=== PATIENT | female | born 1955 | race Caucasian/White ===

== ENCOUNTER → 2016-07-17 | Outpatient (CLI) | payer OTHER ==
--- NOTE | 2016-07-21 10:47 | DX ---
DEXA Bone Densitometry Technique: DEXA scan was performed on DB3 Mobile Discovery W Bone Densitometer Indication: Screening examination Comparator Study: November 2012 Results: Lumbar Spine BMD: 1.319 T-score: +2.5 Prior BMD: 1.198 % change: +10.1% Total Hip (Right) BMD: 1.095 T-score: +1.3 Femoral Neck (Right) BMD: 0.949 T-score: +0.9 Total Hip (Left) BMD: 1.087 T-score: +1.2 Prior BMD: 1.002 % change: +8.5% Femoral Neck (Left) BMD: 0.925 T-score: +0.7 CONCLUSION: Normal bone mineral density In comparison to prior study from November 2012 the patient measured BMD in the lumbar spine is increased by 10.1% which is a significant change. The patient's measure BMD in the total hip has increased sig nificantly ADDITIONAL COMMENTS: By FRAX calculation, the estimated 10 year risk of any osteoporotic fracture is 5.7%. The estimated 1 0 year risk of hip fracture is 0.1% Consider repeating the study in 2 years NOTE: The risk of osteoporotic fractures increases approximately twofold for each 1.0 SD decrease in T-score. The T-score represents the standard deviations from a young normal, same sex, reference po pulation. Low bone density is not the only risk factor for fracture. Clinical factors to consider include fall risk, previous osteoporotic fractures, family history of fractures, smoking, and low body weight. Patients who have an unexpectedly low BMD may need to be evaluated for secondary causes of low bone m ineral density. In comparing the present study to a prior study, lack of a significant increase or decrease in BMD ma y signify efficacy of the patient's present treatment. Bone mineral density measurements performed with densitometers produced by different manufacturers ar e not comparable. For the most reproducible BMD measurement, subsequent exams should be performed on the same densitometer.
== END ==
LOC: BMCIMAGING 13:58
PROVIDERS: ATTEND Internal Medicine
DX: Z13.820 Encounter for screening for osteoporosis (principal)

== ENCOUNTER 2016-08-24 13:36 | Day surgery (SDC) | payer OTHER ==
[2016-08-24] MEDS ORDERED: LR 1,000 ML IV ONE (14:52)
[2016-08-24] MEDS ORDERED: CEFAZOLIN 2 GM/DEXTROSE/100 ML BAG IV ONE (14:54)
[2016-08-24] MEDS ORDERED: ceFAZolin 2 GM/DEXTROSE 100 ML IV ONE (15:00)
[2016-08-24] MEDS ORDERED: PROPOFOL/EMULSION 500 MG/50 ML BOTTLE IV ONE ×2 (15:09→15:55)
[2016-08-24] MEDS ORDERED: BUPIVACAINE 0.25% 30 ML SDV ONE (15:11)
[2016-08-24] MEDS ORDERED: HEPARIN 1000 UNIT/1 ML MDV ONE ×2 (15:12→16:07)
[2016-08-24] MEDS ORDERED: MIDAZOLAM 2 MG/2 ML VIAL ONE (15:22)
[2016-08-24] MEDS ORDERED: LIDOCAINE 1% 30 ML SDV ONE (15:53)
--- NOTE | 2016-08-24 18:10 | GOP ---
DATE OF OPERATION: 08/24/2016 SURGEON: Abrahan Gallardo MD, FACS ANESTHESIA: Laryngeal mask, general. ANESTHESIOLOGIST: Becky Kraft MD. PREOPERATIVE DIAGNOSIS: 1. Metastatic breast cancer. 2. Need for venous access for chemotherapy administration. 3. Indwelling left subclavian automatic internal cardiac defibrillator (AICD). POSTOPERATIVE DIAGNOSIS: 1. Metastatic breast cancer. 2. Need for venous access for chemotherapy administration. 3. Indwelling left subclavian automatic internal cardiac defibrillator (AICD). PROCEDURE PERFORMED: Placement of right internal jugular venous port. FINDINGS: Uncomplicated port placement with tip of catheter positioned at the superior vena caval right atrial junction. Postprocedural chest x-ray pending at time of dictation. ESTIMATED BLOOD LOSS: 5 mL. DESCRIPTION OF PROCEDURE: After informed consent was obtained, the patient was brought to the operating room and placed supine with both arms tucked. The neck and chest wall were prepped and draped in the usual fashion after a satisfactory general anesthetic was administered. Before proceeding, a time- out and identification of the patient was performed. Ultrasound was used to identify the right internal jugular vein. The skin lateral to the sternocleidomastoid muscle was infiltrated with 1% lidocaine plain, and an 18-gauge thin wall needle was introduced into the jugular vein under direct visualization with good venous return. A flexible J-wire was introduced and advanced with mild resistance, possibly related to the patient's cardiac leads. Ectopy was noted, and the wire was withdrawn slightly. A reservoir site was selected on the chest wall and was infiltrated with a mixture of 0.25% Marcaine and 1% lidocaine plain. The skin was incised with a scalpel, and dissection was carried out down to the chest wall. No monopolar cautery was used throughout the operation, and hemostasis was secured with bipolar cautery. A small pocket was created superficial to the muscle. An 8- Liberian catheter was then tunneled from the reservoir site to the venipuncture site. A dilator and peel-away catheter were passed over the wire, the wire and dilator were removed, and the 8-Liberian catheter was passed through the peel- away catheter and advanced without resistance. The peel-away catheter was split and removed. The catheter was aspirated with good venous return and was flushed with dilute heparin solution. Under fluoroscopy, the catheter was withdrawn from its position in the right atrium until it was at the superior vena caval right atrial junction. The external portion of the catheter was then cut to length and attached to the reservoir with a locking hub. This was accessed with a noncoring Trimble needle and aspirated with good venous return. It was flushed with dilute heparin solution, followed by 1000 units/cc heparin 2.5 mL. The reservoir was secured to the fascia with 3-0 Prolene suture. Subcutaneous tissues were inspected for hemostasis, which appeared secure. They were approximated with 3-0 Monocryl suture. Skin was closed with 5-0 Monocryl suture in a subcuticular fashion. The vena puncture site was closed with a single interrupted 5-0 Monocryl suture in simple subcuticular fashion. Sterile dressings were applied. The patient was returned to the recovery room extubated, in satisfactory condition. Needle, sponge, and instrument count were correct. COMPLICATIONS: None. /[id number]/MODL MTDD
== END 2016-08-24 18:35 | disposition home or self-care (01) ==
LOC: FSGY 13:36
PROVIDERS: ATTEND Surgery
PROC: 0JH60XZ Insertion of Tunneled Vascular Access Device into Chest Subcutaneous Tissue and Fascia, Open Approach (ICD-10-PCS; principal; 2016-08-24 14:45)
PROC: 02HV33Z Insertion of Infusion Device into Superior Vena Cava, Percutaneous Approach (ICD-10-PCS; principal; 2016-08-24 14:45)
DX: C78.7 Secondary malignant neoplasm of liver and intrahepatic bile duct (principal); C79.51 Secondary malignant neoplasm of bone; Z85.3 Personal history of malignant neoplasm of breast; I45.81 Long QT syndrome; Z95.810 Presence of automatic (implantable) cardiac defibrillator; I87.8 Other specified disorders of veins; M54.9 Dorsalgia, unspecified; I10 Essential (primary) hypertension; E03.9 Hypothyroidism, unspecified; E78.5 Hyperlipidemia, unspecified; Z98.1 Arthrodesis status
CPT/HCPCS: C1788; J0690; J2250; J2704

== ENCOUNTER → 2016-08-27 | Outpatient (CLI) | payer OTHER | LOC: FIMAGING 17:01 | PROVIDERS: ATTEND Internal Medicine Hematology & Oncology | DX: M79.602 Pain in left arm (principal); Z85.3 Personal history of malignant neoplasm of breast ==

== ENCOUNTER → 2016-10-01 | Outpatient (CLI) | payer OTHER | LOC: FIMAGING 14:40 | PROVIDERS: ATTEND Nurse Practitioner | DX: R91.1 Solitary pulmonary nodule (principal); J98.4 Other disorders of lung; C50.919 Malignant neoplasm of unspecified site of unspecified female breast ==

== ENCOUNTER → 2016-10-02 | Outpatient (CLI) | payer OTHER ==
[~2016-10-02] MED LIST: IOPAMIDOL (ISOVUE 370) 100 ML BTL IV ONE
== END ==
LOC: FIMAGING 15:28
PROVIDERS: ATTEND Nurse Practitioner
DX: R06.02 Shortness of breath (principal); C78.00 Secondary malignant neoplasm of unspecified lung; C78.7 Secondary malignant neoplasm of liver and intrahepatic bile duct; C50.919 Malignant neoplasm of unspecified site of unspecified female breast
CPT/HCPCS: Q9967

== ENCOUNTER → 2016-10-08 | Outpatient (CLI) | payer OTHER | LOC: FIMAGING 13:37 → EDSTATUS 13:38 | PROVIDERS: ATTEND Internal Medicine Hematology & Oncology | DX: C50.411 Malignant neoplasm of upper-outer quadrant of right female breast (principal) ==

== ENCOUNTER 2017-03-03 14:05 | Emergency (ER) | payer OTHER ==
[2017-03-03 14:11] VITALS: PULSE 86
--- NOTE | 2017-03-03 14:16 | EDPHY ---
H & P Stated Complaint: fevers/chills/aches, started new chemo on HPI/ROS: CHIEF COMPLAINT: Low back and neck pain HISTORY OF PRESENT ILLNESS: The patient is a 61 y/o female who presents with abdominal and neck pain since , 3 days ago. She has a history of metastatic breast cancer and has been on consistent chemotherapy for two years. On Saturday, 5 days ago, she had her first treatment with a new medication, and initially felt well. On she developed a subjective fever and headache. She has also had diarrhea in the past day. This morning her temperature was lower but she has pain in her back, abdomen, and shoulder. She describes the pain as an aching sensation, in the muscles. She also reports a new cough, shortness of breath, and cannot take a full breath. Denies sore throat, nausea, vomiting, leg edema, calf pain, dysuria, polyuria, extremity weakness, change in vision, confusion. Denies alcohol and tobacco use. REVIEW OF SYSTEMS: A ten point review of systems was performed and is negative with the exception of the items mentioned in the HPI. Past medical history: Metastatic breast cancer AICD for long QT Hypothyroid Lymphedema Shingles Past surgical history: 3 lumpectomies C5-6 fusion Sympathetic denervation AICD Family history: Congenital long QT Social history: Partner at bedside Non-smoker Retired from [employer] Prior medical records reviewed, including admission note from Dr. Escalante on . General Appearance: Alert. Vital signs reviewed. Blood pressure 98/68 at triage. Temperature 37.1degrees. Eyes: No conjunctival injection, no discharge. Anicteric. ENT, Mouth: Mucous membranes are moist, no oropharyngeal erythema or edema. Neck: No lymphadenopathy, supple, no meningeal signs. Respiratory: Lungs are clear to auscultation; no wheezes, rales, or rhonchi. Cardiovascular: Slight tachycardia; no murmur, rub, or gallop. Gastrointestinal: Hepatomegaly with tenderness. Otherwise abdomen is soft and tender, no masses or organomegaly, bowel sounds normal. Skin: Warm and dry, no rashes on exposed skin, normal color. Back: Midline low lumbar tenderness to palpation. No tenderness to palpation over the thoracic spine. No CVAT. Extremities: No lower extremity edema, no calf tenderness or swelling. Neurological: Alert and oriented. EOMI. Facial expressions symmetric. Tongue midline. Moving all four extremities easily and equally. Psychiatric: Normal affect. - Personal History Current Tetanus/Diphtheria Vaccine: Yes Current Tetanus Diphtheria and Acellular Pertussis (TDAP): Yes Tetanus Vaccine Date: 2009 - Medical/Surgical History Hx Asthma: No Hx Chronic Respiratory Disease: No Hx Diabetes: No Hx Cardiac Disease: No Hx Renal Disease: No Hx Cirrhosis: No Hx Alcoholism: No Hx HIV/AIDS: No Hx Splenectomy or Spleen Trauma: No - Social History Smoking Status: Former smoker Constitutional: Initial Vital Signs Temperature (C) 37.1 C 03/03/17 14:08 Heart Rate 86 03/03/17 14:08 Respiratory Rate 18 03/03/17 14:08 Blood Pressure 98/68 L 03/03/17 14:08 O2 Sat (%) 95 03/03/17 14:08 O2 Delivery Mode Room Air Allergies/Adverse Reactions: cetirizine Allergy (Unknown, Verified 03/03/17 14:06) prolonged QT fentanyl Allergy (Verified 03/03/17 14:06) Vomiting prochlorperazine [From Compazine] Allergy (Verified 03/03/17 14:06) Other-Enter Comments prochlorperazine edisylate [From Compazine] Allergy (Verified 03/03/17 14:06) Other-Enter Comments prochlorperazine maleate [From Compazine] Allergy (Verified 03/03/17 14:06) Other-Enter Comments promethazine HCl [From Phenergan] Allergy (Verified 03/03/17 14:06) Other-Enter Comments Home Medications: Medication Instructions Recorded Montelukast Sodium 07/09/15 FLUoxetine [Prozac 10 MG (*)] 03/15/16 Hydrochlorothiazide [HCTZ (*)] 03/15/16 LORazepam [Ativan (*)] 03/15/16 Levothyroxine [Synthroid 112 mcg 03/15/16 (*)] Potassium Cl [Klor-Con 20 meq (*)] 03/15/16 Refresh Preservative Free 03/15/16 Spironolactone [Aldactone 25 MG 03/15/16 (*)] Temazepam [Restoril 15 MG (*)] 03/15/16 Herceptin 440 MG/20 ML 08/21/16 Navelbine 08/21/16 Gemcitabine HCl 03/03/17 Medical Decision Making - Diagnostics Imaging: Discussed imaging studies w/ milking worker Radiologist, I viewed and interpreted images myself ED Course/Re-evaluation: The patient is a 61 y/o female with Stage 4 metastatic breast cancer who presents with a fever and myalgias after starting a new chemotherapeutic drug. She is afebrile in the ED. She has tenderness over her lumbar spine and liver ( she is known to have liver metastases). Plan on labs, blood cultures, and chest x-ray. Reassessed patient at 1520 and discussed her laboratory results. WBC within normal limits, with slight left shift. Glucose high, chemistries otherwise normal. She is not febrile, this is not neutropenic fever. Reassessed patient at 1550 and discussed imaging results. CXR does not show an infiltrate. Stable metastatic disease seen on xray. [address] Min Aburto, oncologist. He agrees that since there is no source of infection for her current symptoms antibiotics are not warranted. 1700 she has received 1 L normal saline IV. I think that she is volume depleted. She has not had diarrhea in theED. She has no new complaints. She continues with mild headache, no meningeal signs. She is awake, alert, and appropriate. Normal neurologic exam. She remains afebrile. Blood pressure is 103/67. Patient will be discharged with agreement to keep her appointment with Dr. Fish, oncologist, on Saturday (2 days from now). Differential Diagnosis: Fever in adults including but not limited to neutropenic fever in setting of chemotherapy, pneumonia, meningitis, urinary tract infection, viral syndrome, and influenza. - Data Points Laboratory Results: Laboratory Results 03/03/17 14:50 03/03/17 14:50 Microbiology Results: MICROBIOLOGY 03/03/17 15:20 Blood Blood Culture - Preliminary 03/03/17 14:50 Blood Blood Culture - Preliminary Medications Given: Discontinued Medications Heparin Sodium (Porcine) (Heparin Lock Flush) 500 unit IVP EDNOW ONE Stop: 03/03/17 17:01 Last Admin: 03/03/17 17:12 Dose: 500 unit Ibuprofen (Motrin) 400 mg PO EDNOW ONE Stop: 03/03/17 15:57 Last Admin: 03/03/17 16:10 Dose: 400 mg Departure - Departure Disposition: Home, Routine, Self-Care Clinical Impression: Fever, Myalgia Condition: Good Instructions: Fever in Adults (ED), Musculoskeletal Pain (ED) Additional Instructions: 1. Adult Pain & Fever Control: We recommend Acetaminophen (Tylenol) and Ibuprofen (Motrin,Advil) for pain and fever control. When fever is high or pain severe, both drugs can be used at the same time, but at different intervals. Please note the time differences. Your dose is: Acetaminophen 650mg every 4 to 6 hours Ibuprofen 400mg every 6-8 hours with food. Note: do not take Acetaminophen with Hydrocodone (Vicodin, Lortab) or Oycodone (Percocet). These medications also contain Acetaminophen. No more than 3000mg of Acetaminophen should be taken in 24 hours (for an adult). 2. Keep your appointment with Dr. Fish on Saturday. 3. Return to the ED if you experience fever over 100.5, chest pain, shortness of breath, severe abdominal pain, weakness, numbness, or other worsening of your symptoms. Referrals: Shona Agarwal MD [Primary Care Provider] - As per Instructions Report Scribed for: Luz Rodas Report Scribed by: Kathie Baum Date of Report: 03/03/17 Time of Report: 14:40 Physician Review and Approval Statement: 03/03/17 14:16 Portions of this note were transcribed by the medical insurance verifier. I, Dr. Luz Rodas, personally performed the history, physical exam, and medical decision- making; and confirmed the accuracy of the information in the transcribed note.
[2017-03-03 15:07] LABS: % IMMATURE GRANULYOCYTES 0.7 % (0.0-1.1); ABSOLUTE IMMATURE GRANULOCYTES 0.04 10^3/uL (0.00-0.10); ABSOLUTE NRBC COUNT 0.02 10^3/uL (0-0.01); ADD DIFF? NO; ADD MORPH? NO; ADD SCAN? NO; ATYPICAL LYMPHOCYTE FLAG 0 (0-99); FRAGMENT RBC FLAG 20 (0-99); HEMATOCRIT 31.4 % (38.0-47.0); HEMOGLOBIN 10.1 g/dL (12.6-16.3); LEFT SHIFT FLG 0 (0-99); LIPEMIA HEMOLYSIS FLAG 80 (0-99); MEAN CELL HEMOGLOBIN 30.5 pg (27.9-34.1); MEAN CELL HEMOGLOBIN CONCENTR. 32.2 g/dL (32.4-36.7); MEAN CELL VOLUME 94.9 fL (81.5-99.8); NRBC-AUTO% 0.3 % (0.0-0.2); PLATELET CLUMPS FLAG 0 (0-99); PLATELET COUNT 295 10^3/uL (150-400); RED BLOOD CELL COUNT 3.31 10^6/uL (4.18-5.33); RED CELL DISTRIBUTION WIDTH 17.5 % (11.5-15.2)
[2017-03-03 15:23] LABS: ANION GAP 11 mEq/L (8-16); CALCIUM 9.3 mg/dL (8.5-10.4); CARBON DIOXIDE 25 mEq/l (22-31); CHLORIDE 102 mEq/L (97-110); CREATININE 0.9 mg/dL (0.6-1.0); GLOMERULAR FILTRATION RATE > 60; GLUCOSE 178 mg/dL (70-100); POTASSIUM 4.3 mEq/L (3.5-5.2); SODIUM 138 mEq/L (134-144)
[2017-03-03 15:45] LABS: COLOR YELLOW; LEUKOCYTE ESTERASE,URINE NEGATIVE (NEGATIVE); NITRITE,URINE NEGATIVE (NEGATIVE)
[2017-03-03] MEDS ORDERED: IBUPROFEN 200 MG TAB PO ONE (15:56)
[2017-03-03 17:25] VITALS: BP 103/76; RESP 16; TEMP 98.8; O2SAT 94
== END 2017-03-03 17:24 | disposition home or self-care (01) ==
DX: R50.9 Fever, unspecified (principal); M79.1 Myalgia; Z85.3 Personal history of malignant neoplasm of breast; Z87.891 Personal history of nicotine dependence
CPT/HCPCS: J1642

== ENCOUNTER → 2017-03-07 | Outpatient (CLI) | payer OTHER ==
[~2017-03-07] MED LIST changes: -IOPAMIDOL (ISOVUE 370) 100 ML BTL IV ONE; +IOPAMIDOL (ISOVUE-M 300) 15 ML VIAL ONE; +LIDOCAINE 1% 300 MG/30 ML SDV ONE
== END ==
LOC: FIMAGING 08:45
PROVIDERS: ATTEND Physician Assistant Surgical
PROC: B00B1ZZ Plain Radiography of Spinal Cord using Low Osmolar Contrast (ICD-10-PCS; principal; 2017-03-07)
DX: C79.51 Secondary malignant neoplasm of bone (principal); C50.919 Malignant neoplasm of unspecified site of unspecified female breast
CPT/HCPCS: Q9967

== ENCOUNTER → 2017-03-13 | Day surgery (SDC) | payer OTHER ==
[~2017-03-13] MED LIST changes: -LIDOCAINE 1% 300 MG/30 ML SDV ONE
== END | disposition home or self-care (01) ==
LOC: FIMAGING 13:00
PROVIDERS: ATTEND Obstetrics & Gynecology
PROC: B01B1ZZ Fluoroscopy of Spinal Cord using Low Osmolar Contrast (ICD-10-PCS; principal; 2017-03-13)
PROC: 3E0S3GC Introduction of Other Therapeutic Substance into Epidural Space, Percutaneous Approach (ICD-10-PCS; principal; 2017-03-13)
DX: G97.1 Other reaction to spinal and lumbar puncture (principal)
CPT/HCPCS: J1642; Q9967

== ENCOUNTER → 2017-06-27 | Outpatient (CLI) | payer OTHER | LOC: FIMAGING 18:50 | PROVIDERS: ATTEND Internal Medicine Hematology & Oncology | DX: C78.00 Secondary malignant neoplasm of unspecified lung (principal); C50.919 Malignant neoplasm of unspecified site of unspecified female breast ==

== ENCOUNTER → 2017-07-04 | Outpatient (CLI) | payer OTHER | LOC: FIMAGING 15:13 | PROVIDERS: ATTEND Internal Medicine Hematology & Oncology | DX: J11.1 Influenza due to unidentified influenza virus with other respiratory manifestations (principal); Z85.3 Personal history of malignant neoplasm of breast ==

== ENCOUNTER 2017-07-05 17:17 | Inpatient (IN) | payer OTHER ==
[2017-07-05] MEDS ORDERED: NS 1,800 ML IV ONE (17:39)
--- NOTE | 2017-07-05 17:40 | EDPHY ---
H & P Stated Complaint: + flu cancer pt increasing sob/weakness/fever Source: Patient Exam Limitations: No limitations - Personal History Current Tetanus/Diphtheria Vaccine: Yes Tetanus Vaccine Date: 2009 - Medical/Surgical History Hx Asthma: No Hx Chronic Respiratory Disease: No Hx Diabetes: No Hx Cardiac Disease: No Hx Renal Disease: No Hx Cirrhosis: No Hx Alcoholism: No Hx HIV/AIDS: No Hx Splenectomy or Spleen Trauma: No Other PMH: STAGE 4 BREAST CANCER,PNEUMONITIS hx Shingles,long qt interval, screw in left shoulder, C5/C6 fusion, in Sept.sympathetic denervation which causes residual left pupil smaller than right, pt has pace maker recent cortisone injection to right elebow for tendonitis, syncope - Social History Smoking Status: Former smoker Time Seen by Provider: 07/05/17 17:38 HPI/ROS: HPI: This is a 62-year-old female who presents with Chief Complaint: Flu Location: body Quality: fly Duration: 1 week Signs and Symptoms: + shortness of breath at rest, + shortness of breath on exertion, no cough, no chest pain, positive harsh dry cough, no palpitations, no lower extremity edema, no wheezing, + low-grade fever, no hemoptysis, no neck stiffness, no headache, + 50 Timing: Sudden Severity: Worsened Context: Patient is a stage IV breast cancer with metastatic disease to liver, lung, spine. Patient followed by Dr. Fish currently receiving tratuzumab type therapy presents with low-grade fevers, nonproductive harsh cough, fatigue, chills, decreased appetite since while she was in [place]. Patient reports that she went to urgent care within 24 hr of developing symptoms, tested positive for influenza and was told by the urgent care doctor to go to the emergency room for further care as he did not feel comfortable treating her. Patient went to the local emergency room and was told was going to be a 5 hr wait so patient returned to the [facility] that she was staying at. She returned to [place] on the and had blood work with Dr. Fish on the that looked pretty good so she had her infusion treatment as scheduled. She reports that the day after receiving her treatment she has felt considerably worse, decreased appetite, low-grade fevers, harsh dry cough. She reports that she has been using Atrovent with mildly relief of her coughing episodes and cough syrup with codeine that just puts her to sleep. Denies chest pain/ palpitation/lower extremity edema. Her recently had hip surgery in his at home. Friend at the bedside reports that she is unable to care for self at home. Also complains lower back pain has worsened over the last few days accompanied by urinary frequency. Modifying Factors: See above Comment: ROS: see HPI Constitutional: + fever, + chills, no weight loss Eyes: No blurred vision Respiratory: + shortness of breath, no cough Cardiovascular: No chest pain, no palpitations, no lower extremity edema Gastrointestinal: No nausea, no vomiting, no diarrhea Genitourinary: No dysuria Extremities: No myalgias Neurologic: No weakness, no numbness Skin: No rashes Hematologic: No bruising, no bleeding MEDICAL/SURGICAL/SOCIAL HISTORY: Medical/Surgical history: STAGE 4 BREAST CANCER,PNEUMONITIS hx Shingles,long qt interval,screw in left shoulder, C5/C6 fusion, in Sept.sympathetic denervation which causes residual left pupil smaller than right, congenital prolonged QT syndrome, status post AICD and pacemaker placement, syncope Social history: . CONSTITUTIONAL: Chronically ill-appearing elderly white female who appears ill , awake and alert, no obvious distress HEENT: Atraumatic and normocephalic, PERRL, EOMI. Tympanic membranes clear. Oropharynx clear, no exudate and moist pink mucosa. Airway patent. No lymphadenopathy. No meningismus. Cardiovascular: Normal S1/S2, regular rate, regular rhythm, without murmur rub or gallop. PULMONARY/CHEST: Symmetrical and nontender. Expiratory wheezing noted with coughing episodes. Good air movement. No accessory muscle usage. ABDOMEN: Soft, nondistended, nontender, no rebound, no guarding, no peritoneal signs, no masses or organomegaly. No CVAT. EXTREMITIES: 2/2 pulses, strength 5/5, no deformities, no clubbing, no cyanosis or edema. NEUROLOGICAL: no focal neuro deficits. GCS 15. SKIN: Warm and dry, no erythema. no rash. Good capillary refill. (Paris Haley) Constitutional: Initial Vital Signs Temperature (C) 37.3 C 07/05/17 17:22 Heart Rate 93 07/05/17 17:22 Respiratory Rate 18 07/05/17 17:22 Blood Pressure 98/65 L 07/05/17 17:22 O2 Sat (%) 91 L 07/05/17 17:22 O2 Delivery Mode Room Air Allergies/Adverse Reactions: cetirizine Allergy (Unknown, Verified 03/03/17 14:06) prolonged QT fentanyl Allergy (Verified 03/03/17 14:06) Vomiting prochlorperazine [From Compazine] Allergy (Verified 03/03/17 14:06) Other-Enter Comments prochlorperazine edisylate [From Compazine] Allergy (Verified 03/03/17 14:06) Other-Enter Comments prochlorperazine maleate [From Compazine] Allergy (Verified 03/03/17 14:06) Other-Enter Comments promethazine HCl [From Phenergan] Allergy (Verified 03/03/17 14:06) Other-Enter Comments Home Medications: Medication Instructions Recorded Montelukast Sodium 10 mg PO DAILY 07/09/15 FLUoxetine [Prozac 10 MG (*)] 10 mg PO DAILY 03/15/16 Hydrochlorothiazide [HCTZ (*)] 25 mg PO DAILY 03/15/16 LORazepam [Ativan (*)] 0.5 mg PO HS 03/15/16 Levothyroxine [Synthroid 112 mcg 112 mcg PO DAILY 03/15/16 (*)] Potassium Cl [Klor-Con 20 meq (*)] 60 meq PO DAILY 03/15/16 Spironolactone [Aldactone 25 MG 50 mg PO DAILY 03/15/16 (*)] Temazepam [Restoril 15 MG (*)] 30 mg PO HS 03/15/16 Herceptin 440 MG/20 ML 0 units IV Q21D 08/21/16 Gemcitabine HCl 0 unit IV Q14D 03/03/17 Acetaminophen [Tylenol ES 500 mg 1,000 mg PO Q6 PRN 07/05/17 (*)] Carboxymethylcellulose 1% [Refresh 1 drop EACHEYE DAILY PRN 07/05/17 Celluvisc (*)] Codeine Phosphate/Guaifenesin 5 ml PO Q4H PRN 07/05/17 [Virtussin AC Liquid] Herbals/Supplements -Info Only 1 ea PO DAILY 07/05/17 Ibuprofen [Motrin (*)] 200 - 400 mg PO BID PRN 07/05/17 Ipratropium [Atrovent Hfa (*)] 1 inh IH Q6H 07/05/17 Lifitegrast [Xiidra] 1 each OP DAILY PRN 07/05/17 Medical Decision Making - Diagnostics Imaging Results: Imaging Impressions Chest X-Ray 07/05/17 17:39 Impression: There has been no interval change since yesterday's study. Specifically, there is no new focal infiltrate observed. ED Course/Re-evaluation: I evaluated this patient with Paris Haley and discuss the past medical history of stage IV breast cancer. The patient is immunocompromised. The patient is influenza positive. We are assessing the patient for sepsis. I agree with the evaluation and plan and have continued to maintain involvement from patient's arrival until admission (Andrea Rae) Will evaluate for sepsis and give normal saline 30 ml/kg. Labs, urinalysis, blood culture, chest x-ray, IV fluids, IV medications ordered. Patient has failed outpatient therapy and is immunocompromised and will need admission for further management. Given DuoNeb and placed on oxygen therapy as O2 sats 91% on room air upon arrival. X-ray does not show any interval change in no signs of opacity, + trace effusion. CT lumbar spine ordered to evaluate for compression fracture Labs reviewed and show leukocytosis with normal lactic acid. Creatinine 1.1 which is increased from 0.8 few days ago. ED decision to consult for admission; Dr. Rae spoke with hospitalist, Dr. Cortez, who kindly agrees admit patient for further care for influenza positive in an immunocompromised patient with hypoxemia. This patient was seen under the supervision of my secondary supervising physician. I evaluated care for this patient independently. Discussed this patient with Dr. Rae who did not see the patient. Patient's presentation, labs/imaging, treatment and plan of care were discussed with secondary supervising physician. (Paris Haley) Differential Diagnosis: Adult fever including but not limited to viral syndromes including influenza, urinary tract infection, pneumonia and sepsis. (Paris Haley) - Data Points Laboratory Results: Laboratory Results 07/05/17 18:19 07/05/17 18:19 07/05/17 07/05/17 07/05/17 18:19 18:19 18:19 WBC 10.53 10^3/uL H 10^3/uL (3.80-9.50) RBC 3.78 10^6/uL L 10^6/uL (4.18-5.33) Hgb 12.0 g/dL L g/dL (12.6-16.3) Hct 35.5 % L % (38.0-47.0) MCV 93.9 fL fL (81.5-99.8) MCH 31.7 pg pg (27.9-34.1) MCHC 33.8 g/dL g/dL (32.4-36.7) RDW 17.5 % H % (11.5-15.2) Plt Count 149 10^3/uL L 10^3/uL (150-400) MPV 9.5 fL fL (8.7-11.7) Neut % (Auto) 83.0 % H % (39.3-74.2) Lymph % (Auto) 1.8 % L % (15.0-45.0) [place] % (Auto) 14.2 % H % (4.5-13.0) Eos % (Auto) 0.1 % L % (0.6-7.6) Baso % (Auto) 0.1 % L % (0.3-1.7) Nucleat RBC Rel Count 1.3 % H % (0.0-0.2) Absolute Neuts (auto) 8.74 10^3/uL H 10^3/uL (1.70-6.50) Absolute Lymphs (auto) 0.19 10^3/uL L 10^3/uL (1.00-3.00) Absolute Monos (auto) 1.50 10^3/uL H 10^3/uL (0.30-0.80) Absolute Eos (auto) 0.01 10^3/uL L 10^3/uL (0.03-0.40) Absolute Basos (auto) 0.01 10^3/uL L 10^3/uL (0.02-0.10) Absolute Nucleated RBC 0.14 10^3/uL H 10^3/uL (0-0.01) Immature Gran % 0.8 % % (0.0-1.1) Immature Gran # 0.08 10^3/uL 10^3/uL (0.00-0.10) PT 13.7 SEC SEC (12.0-15.0) INR 1.03 (0.83-1.16) APTT 27.1 SEC SEC (23.0-38.0) VBG Lactic Acid Sodium 133 mEq/L L mEq/L (134-144) Potassium 4.4 mEq/L mEq/L (3.5-5.2) Chloride 96 mEq/L L mEq/L (97-110) Carbon Dioxide 26 mEq/l mEq/l (22-31) Anion Gap 11 mEq/L mEq/L (8-16) BUN 27 mg/dL H mg/dL (7-23) Creatinine 1.1 mg/dL H mg/dL (0.6-1.0) Estimated GFR 50 Glucose 123 mg/dL H mg/dL (70-100) Calcium 9.6 mg/dL mg/dL (8.5-10.4) 07/05/17 18:19 WBC RBC Hgb Hct MCV MCH MCHC RDW Plt Count MPV Neut % (Auto) Lymph % (Auto) [place] % (Auto) Eos % (Auto) Baso % (Auto) Nucleat RBC Rel Count Absolute Neuts (auto) Absolute Lymphs (auto) Absolute Monos (auto) Absolute Eos (auto) Absolute Basos (auto) Absolute Nucleated RBC Immature Gran % Immature Gran # PT INR APTT VBG Lactic Acid 1.4 mmol/L mmol/L (0.7-2.1) Sodium Potassium Chloride Carbon Dioxide Anion Gap BUN Creatinine Estimated GFR Glucose Calcium Medications Given: Discontinued Medications Albuterol (Proventil Neb) 3 ml IH EDNOW ONE Stop: 07/05/17 18:02 Last Admin: 07/05/17 18:26 Dose: Not Given Sodium Chloride (Ns) 1,800 mls @ 3,600 mls/hr 30 ml/kg infuse over 30 min ( 1800 ml) IV EDNOW ONE PRN Reason: Protocol Stop: 07/05/17 18:08 Last Admin: 07/05/17 18:29 Dose: 1,800 mls Departure - Departure Disposition: [facility] Clinical Impression: Influenza, Hypoxemia Breast cancer metastasized to multiple sites Qualifiers: Laterality: unspecified laterality Qualified Code(s): C50.919 - Malignant neoplasm of unspecified site of unspecified female breast Condition: Fair
[2017-07-05] MEDS ORDERED: ALBUTEROL 3 ML DEYVIAL IH ONE (18:01)
[2017-07-05 18:31] LABS: PLATELET COUNT 149 10^3/uL (150-400)
[2017-07-05 18:42] LABS: INR 1.03 (0.83-1.16); PROTIME(PATIENT) 13.7 SEC (12.0-15.0)
[2017-07-05] MEDS ORDERED: ACETAMINOPHEN 500 MG TAB PO PRN (19:52)
[2017-07-05] MEDS ORDERED: oxyCODONE IR 5 MG TAB PO PRN (19:57)
[2017-07-05] MEDS ORDERED: PROMETHAZINE HCL 25 MG/ML INJ IVP PRN (19:57)
[2017-07-05] MEDS ORDERED: HYDROmorphONE/DILAUDID 1 MG/ML INJ IVP PRN (19:57)
--- NOTE | 2017-07-05 20:40 | GHP ---
[f rep st] HISTORY AND PHYSICAL DATE OF ADMISSION: 07/05/2017 CHIEF COMPLAINT: Shortness of breath. HISTORY: The patient is a 62-year-old female who initially got sick on [place] with fever and cough. They were visiting in [place], and she went to urgent care on the , and tested positive f or influenza. The urgent care felt uncomfortable prescribing her Tamiflu because they were unsure ho w to proceed given her metastatic cancer, and so they deferred it to the emergency room. However, e waits were extraordinarily long, and the patient was never seen. She returned to [place], saw her oncologist on June 28, and at that time it appears her influenza was getting better, so she unde rwent her usual chemotherapy. Shortly after receiving chemotherapy, she has again worsened with ongo ing symptoms of shortness of breath, fever, chills, severe fatigue, nonproductive cough. She denies any chest pain. She has also developed severe back pain for the last week in her lumbar region, and at times will be 10/10, and she is unable to walk. Her partner, Kadi, recently had hip surgery and is recovering fro m that herself. The patient is struggling at home, as she does not have any current assistance from her partner. PAST MEDICAL HISTORY: 1. Congenital long QT syndrome, status post AICD. 2. Metastatic breast cancer. 3. Lymphedema. 4. Sympathetic denervation. PAST SURGICAL HISTORY: Cervical fusion. MEDICATIONS: Please see computer record for full detailed list. ALLERGIES: Please see computerized list. SOCIAL HISTORY: She does not smoke. No alcohol. She lives with her partner, Kadi, who recently ma d hip surgery. REVIEW OF SYSTEMS: Complete review of systems obtained. Review of systems negative for constitution al, HEENT, GI, pulmonary, cardiovascular, breast, , hematology, skin, musculoskeletal, endocrine, p sych, except for positives and negatives as in HPI. FAMILY HISTORY: Reviewed and noncontributory to presenting complaint. PHYSICAL EXAMINATION: GENERAL: Well-developed, well-nourished female, in no acute distress. VITAL SIGNS: Temperature 37.3, pulse 85, blood pressure 97/71, saturating 91% on room air. EYES: Normal conjunctivae. Pupils are equal, normal conjunctivae. No scleral icterus. ENT: Normal ears and nos e. Hearing intact. Normal teeth. Oropharynx moist. NECK: Trachea midline. No thyromegaly. CHES T: Normal respiratory effort. LUNGS: Clear to auscultation bilaterally. CARDIOVASCULAR: Regular r ate, rhythm. No murmur. No extremity edema. ABDOMEN: Soft, nontender. No hepatosplenomegaly. SK IN: Warm, dry, intact without rash. MUSCULOSKELETAL: No cyanosis or clubbing. Strength 5/5 upper and lower extremities. NEURO: Cranial nerves intact. Normal sensation to light touch. PSYCH: Aler t and oriented x3. Normal affect. Normal judgment and insight. Normal memory. LABORATORY DATA: White count 10.5, hematocrit 35.5, platelets 149, sodium 133, potassium 4.4, chlori de 96, bicarb 26, BUN 27, creatinine 1.1, glucose 123, INR is 1.03, lactate is 1.4. Chest x-ray, reviewed by me. My personal interpretation is obvious pulmonary metastases, but no infi ltrate. This case was discussed with Dr. Rae, emergency room physician. He believe she needs ad mission for further care given the story above. ASSESSMENT/PLAN: 1. Influenza. She has now had 2 weeks of symptoms without relief. I do not think there is any bene fit to starting Tamiflu at this time. I wonder if she has developed a secondary bacterial bronchitis , and I will start her on some oral doxycycline. She will, otherwise, be treated supportively. My s uspicion is that she is immunosuppressed due to her chemotherapy malignancy, and is, therefore, havin g difficulty clearing the virus. I will also check a D-dimer. Consider workup for pulmonary embolus if positive. 2. Low back pain. CT scan of the lumbar spine is pending. 3. Metastatic breast cancer with extensive lung metastases. These are enlarging slowly by imaging. 4. Congenital long QT syndrome, status post automatic implantable cardioverter defibrillator. Her l marco QT must be considered with all medication choices. She refuses albuterol, as she believes it jihan gthens the QT, although I looked it up in [employer], and I could find no evidence of albuterol eric jacobson this effect listed. 5. Lymphedema. Continue hydrochlorothiazide. CODE STATUS: Full. ADMISSION STATUS: 1. We will admit to observation and reassess tomorrow regarding ongoing need for hospitalization. 2. DVT prophylaxis. She is high risk. We will place her on subcu [facility]. /[id number]/MODL
[2017-07-05] MEDS: LORazepam 0.5 MG TAB PO SCH (21:43)
[2017-07-05] MEDS: TEMAZEPAM 15 MG CAP PO SCH (21:43)
[2017-07-05] MEDS: DOXYCYCLINE HYCLATE 100 MG CAP/TAB PO SCH (21:43)
[2017-07-05] MEDS: IPRATROPIUM HFA INHALER IH SCH (22:14)
[2017-07-05] MEDS: guaiFENesin/CODEINE PHOS 10 ML UDCUP PO PRN (23:51)
[2017-07-06] MEDS: IBUPROFEN 600 MG TAB PO PRN (01:11)
[2017-07-06] MEDS: BENZONATATE 100 MG CAP PO PRN ×2 (03:00→20:00)
[2017-07-06] MEDS: traMADol 50 MG TAB PO PRN ×2 (03:00→13:50)
[2017-07-06] MEDS: IPRATROPIUM HFA INHALER IH SCH ×4 (03:00→19:48)
[2017-07-06] MEDS: NS 1,000 ML IV SCH ×2 (04:30→19:56)
[2017-07-06 04:36] LABS: PLATELET COUNT 123 10^3/uL (150-400)
[2017-07-06] MEDS: DOXYCYCLINE HYCLATE 100 MG CAP/TAB PO SCH ×2 (09:48→20:02)
[2017-07-06] MEDS: SPIRONOLACTONE 50 MG TAB PO SCH (09:48)
[2017-07-06] MEDS: LEVOTHYROXINE 112 MCG TAB PO SCH (09:48)
[2017-07-06] MEDS: MONTELUKAST SODIUM 10 MG TAB PO SCH (09:48)
[2017-07-06] MEDS: FLUoxetine 10 MG CAP PO SCH (09:48)
[2017-07-06] MEDS: ENOXAPARIN 40 MG/0.4 ML SYR SC SCH (09:49)
[2017-07-06] MEDS: POTASSIUM CL 20 MEQ TAB PO SCH (09:49)
[2017-07-06] MEDS: HYDROCHLOROTHIAZIDE 25 MG TAB PO SCH (10:46)
[2017-07-06] MEDS ORDERED: IOPAMIDOL (ISOVUE 370) 100 ML BTL IV ONE (12:01)
--- NOTE | 2017-07-06 15:42 | HOSPPROG ---
Hospitalist Progress Note Assessment/Plan: 62-year-old female who had a known influenza a positive test on 06/24 but did not undergo treatment. She has now presented with worsening shortness of breath and cough. Is a known history of metastatic breast carcinoma, metastatic to the bone which per recent CT scans shows that has been stable since September 2016. Patient is new to [place] chart has been reviewed -acute influenza pneumonitis with shortness of breath. Shortness of breath and chest pain seemed to be worse today and a CTA of the chest showed no evidence of pulmonary emboli, multiple pulmonary parenchymal nodules, a new right pleural effusion, and stable metastatic disease. We will continue her current pulmonary care with coverage for bacteria and no coverage for the influenza as she is outside the therapeutic window. She is currently oxygenating well on room air -hypotension for relative and responsive partially to IV fluids. This is likely secondary to her acute illness along with volume depletion as indicated by an elevated creatinine which is fallen to a normal range with IV fluids since admission. -acute kidney injury secondary to dehydration and acute illness, now resolved to a normal creatinine with IV fluids -metastatic breast carcinoma: Images would indicate that it is been stable since September 2016. Pain management is current. -elevated LFTs and alkaline phosphatase probably secondary to metastatic breast carcinoma. Right upper quadrant is nontender. She has no significant abdominal pain. -prolonged QT interval for which the patient has received an AICD. She is doing well -pain management. Pain is currently well controlled on the current therapies. Plan: Continue current pulmonary care with bronchodilators antibiotics mucolytic and oxygen. Subjective: Reports some shortness of breath and persistent cough she feels persistently weak a. Blood pressure has been slightly low and she has been given IV fluids. Orthostatics are pending. Objective: Vital Signs Temp Pulse Resp BP Pulse Ox 36.7 C 86 16 99/66 L 95 07/06/17 11:29 07/06/17 12:24 07/06/17 11:29 07/06/17 12:24 07/06/17 11:29 Laboratory Results 07/06/17 04:06 07/06/17 04:06 07/05/17 07/06/17 07/07/17 05:59 05:59 05:59 Intake Total 2100 Balance 2100 PT 13.7 SEC (12.0-15.0) 07/05/17 18:19 INR 1.03 (0.83-1.16) 07/05/17 18:19 - Time Spent With Patient Time Spent with Patient: greater than 35 minutes Time Spent with Patient: Greater than 35 minutes spent on this patients care, greater than 50% of time spent counseling, educating, and coordinating care regarding the above mentioned plan. - Pending Discharge Pending Discharge Within 24 Hours: No Pending Discharge Within 48 Hours: No - Physical Exam Constitutional: chronically ill appearing, other (Acutely and chronically ill the patient appears pale and weak) Eyes: PERRL, anicteric sclera Ears, Nose, Mouth, Throat: moist mucous membranes, hearing normal Cardiovascular: regular rate and rhythym, no murmur, rub, or gallop Respiratory: reduced air movement, inspiratory crackles, bronchial breath sounds , rhonchi Gastrointestinal: normoactive bowel sounds, soft, non-tender abdomen, no palpable masses Genitourinary: no bladder fullness Skin: other (Appears pale but warm.) Musculoskeletal: generalized weakness Neurologic: AAOx3, CN II-XII Intact Psychiatric: interacting appropriately ICD10 Worksheet Patient Problems: Problems Problem Status Onset Syncope Acute Atrial fibrillation Acute Neoplasm of breast, female, malignant Acute AICD discharge Acute Abdominal pain Acute Breast cancer metastasized to multiple sites Acute Influenza Acute Hypoxemia Acute
--- NOTE | 2017-07-06 16:18 | ASMTCMCOM ---
CM Note CM Note Notes: Pt with hx of stage IV breast ca admitted for flu. It is unclear if pt will have any DC needs. CM to follow. Date Signed: 07/06/2017 04:18 PM Electronically Signed By:Evie Hurtado LCSW
--- NOTE | 2017-07-06 16:21 | PDMN ---
Medical Necessity Medical necessity: C/M review: Patient meets INPT criteria under [facility] M-282 Pneumonia, community acquired, Pulmonary disease GRG: Acute and persistent influenza pneumonitis, shortness of breath, hypotension (BP 87/52 - 77/56), acute kidney injury, BUN 27, Cr 1.1, (now resolved), WBC 10.53, 9.53, D-Dimer 3.63, AST 96, ALT 101, Alk phos 231, requiring ongoing IV fluids, , pulse oximetry, supplemental O2, oral Doxycycline BID, bronchodilators, mucolytics, pain management, comorbid positive influenza test 06/24/2017 but patient did not undergo treatment, metastatic breast cancer - estensive pulmonary and hepatic metastatic disease wiith development of new right pleural effusion on CTA 07/06/2017, history of prolonged QT interval with AICD placement. MD anticipates > 2 MN LOS for ongoing med nec for eval and TX of above.
[2017-07-06] MEDS: METHOCARBAMOL 500 MG TAB PO PRN (20:01)
[2017-07-06] MEDS: guaiFENesin/CODEINE PHOS 10 ML UDCUP PO PRN (20:01)
[2017-07-06] MEDS: LORazepam 0.5 MG TAB PO SCH (20:02)
--- NOTE | 2017-07-06 21:09 | GCON ---
[f rep st] CONSULTATION INITIAL VISIT. PRIMARY ONCOLOGIST: Valdemar Fish MD. REASON FOR VISIT: Evaluation and management for metastatic breast cancer. HISTORY OF PRESENT ILLNESS: The patient is a 62-year-old woman who was initially diagnosed with stag e IIA breast cancer in May 2000. She underwent a lumpectomy and then received adjuvant chemothe rapy with AC followed by Taxol and then whole-breast radiation. She was on tamoxifen from 2000 throu gh 2001 and then switched to anastrozole in 2001, but had to switch back to tamoxifen due to I believ e intolerability. She was on that through 2005. She then developed recurrence in the sternal area i n 2011 and started on denosumab and exemestane through 2013. She was then on fulvestrant. She was s tarted on chemotherapy with pertuzumab, trastuzumab, and paclitaxel in 2015 and then she was on ado t rastuzumab emtansine in 2015 through early 2016. She then was started on vinorelbine plus trastuzuma b and then more recently she has been on gemcitabine plus trastuzumab. Her last dose of chemotherapy was on June 28, 2017. She has been getting routine echocardiograms and the last one was in the end of March with a normal EF of 60%. She was vacationing in [place] over the Meryl holidays and then caught the flu. It was a documen carmita influenza, but was not given Tamiflu. There was no evidence of pneumonia. She saw Dr. Fish on the and she seemed to be recovering well from the flu and went ahead and treated her. He was ge ing ready to re-stage her. She came in the office this last week complaining of a cough. Further chemotherapy is under medical review with her insurance. She was seen by Dr. Walls and he obtained a chest x-ray which did not show a pneumonia. He thought she was still just recovering from the inf luenza and recommended conservative care. That visit on . Last evening, she developed sever e back pain in sort of lateral right lumbar region and she also states that she was more lethargic, h aving chills and aches, and low-grade fever to 101, and increasing coughing and trouble breathing. S he was brought to the emergency room. Admitted to the hospital for possible pneumonia. Because of a potential secondary bronchitis or infection, she was started on doxycycline. She is still feeling t ired, but maybe a little bit better today than she did yesterday. PAST MEDICAL HISTORY: ALLERGIES: She is allergic to prochlorperazine, promethazine, and cetirizine. Also allergic to fent anyl. HOME MEDICATIONS: Include ibuprofen, acetaminophen, codeine with guaifenesin, lifitegrast, ipratropi um, spironolactone, temazepam, refresh eye drops, potassium chloride, montelukast, levothyroxine, anton azepam, hydrochlorothiazide, fluoxetine. CHRONIC ILLNESSES: 1. Metastatic breast cancer as per HPI. ER- and HER2-positive. 2. Congenital long QT syndrome, status post AICD. 3. History of lymphedema. 4. Sympathetic denervation. SURGICAL HISTORY: Includes pacemaker placement, lumpectomy, left sympathectomy of the lower half of the stellate ganglion. SOCIAL HISTORY: She has a significant other who is not with her in the room today. She does not smo ke or drink alcohol. Her significant other recently had a hip replacement. FAMILY HISTORY: Significant more for the long QT syndrome. REVIEW OF SYSTEMS: 10-point Review of Systems performed. Pertinent positives per HPI, otherwise neg ative. PHYSICAL EXAM: VITAL SIGNS: Temperature is 36.7, pulse 86, blood pressure is a little low at 77/56. GENERAL: She is mildly ill-appearing but in no distress. HEENT: Unremarkable. LUNGS: Clear wit h some slight increase in expiratory squeaks and wheezes. CARDIOVASCULAR: Regular without murmur. ABDOMEN: Soft, nontender. EXTREMITIES: Minimally tender over her low spine and mildly tender over h er left flank. NEUROLOGICAL: Grossly intact. LABS: White count was 9500, hemoglobin was 10.1 g/dL, platelet count 123,000. D-dimer was up a deanna le bit 3.6. Lactic acid was normal. Chemistries: Sodium was 133, now 136. BUN and creatinine were 19 and 0.9. AST was 96, ALT 101, alk phos 231, which those were essentially stable. Albumin of 2.5 . She was 3.3 on . UA showed a little protein and 2+ leukocyte esterase. Culture is still pending. Chest x-ray on arrival showed no climate change risk assessor the chest x-ray from the day before. There we re numerous metastatic nodules. Trace residual right pleural effusion. No focal infiltrates or nani a. Lumbar spine CT for the pain showed osseous metastatic disease and degenerative features similar to study from March. CT angiogram due to the elevated D-dimer showed numerous opacified nodules, not significantly changed from the study from September 2016. There was minimal atelectasis in the righ t base and a small right pleural effusion. There was some nodular appearance of the right pleural bear rface. Upper abdomen showed extensive heterogeneous hepatic attenuation and enlargement consistent w ith diffuse hepatic metastatic disease. No comment on how much it might have changed. Pulmonary ang iogram portion showed no clot. IMPRESSION: 1. Acute respiratory illness. 2. Right lower flank pain. 3. Metastatic breast cancer. Generally her disease seems to have been stable, although difficult to know how the liver looks melissa red to the previous. It does not appear that worsening cancer would explain her chest symptoms. No clear-cut pneumonia, but she might have a secondary bacterial bronchitis from the recent flu versus s he has developed another viral infection. She is currently on doxycycline and at least stable if not a little improved. If she continues to have some wheezing, she might benefit from some therapy dire cted at that. It is unlikely she has heart failure, but it is a risk from Herceptin and it has been almost 3 months since her last echocardiogram, so I recommend getting 1 while she is here in the hosp ital to rule out that possibility as well. It is unlikely this is related to her chemotherapy in gen eral, as pulmonary toxicity from gemcitabine is usually an interstitial pneumonitis and there is no e vidence of that on the scan. /[id number]/MODL
[2017-07-06] MEDS: TEMAZEPAM 15 MG CAP PO SCH (21:37)
[2017-07-06] MEDS ORDERED: LIDOCAINE 2% JELLY 5 ML TUBE TP ONE (22:53)
[2017-07-06] MEDS ORDERED: CALCIUM CARBONATE 500 MG CHEWABLE TAB PO PRN (23:12)
[2017-07-06] MEDS ORDERED: LIDOCAINE/PRILOCAINE 1 EACH CRTUBE TP ONE (23:45)
[2017-07-07] MEDS: IBUPROFEN 600 MG TAB PO PRN (00:05)
[2017-07-07] MEDS: IPRATROPIUM HFA INHALER IH SCH ×4 (01:48→19:23)
[2017-07-07] MEDS: NS 1,000 ML IV SCH (01:48)
[2017-07-07] MEDS: MONTELUKAST SODIUM 10 MG TAB PO SCH (09:14)
[2017-07-07] MEDS: DOXYCYCLINE HYCLATE 100 MG CAP/TAB PO SCH ×2 (09:14→20:17)
[2017-07-07] MEDS: FLUoxetine 10 MG CAP PO SCH (09:14)
[2017-07-07] MEDS: POTASSIUM CL 20 MEQ TAB PO SCH (09:14)
[2017-07-07] MEDS: LEVOTHYROXINE 112 MCG TAB PO SCH (09:14)
[2017-07-07] MEDS: BENZONATATE 100 MG CAP PO PRN ×3 (09:14→23:33)
[2017-07-07] MEDS: ENOXAPARIN 40 MG/0.4 ML SYR SC SCH (09:17)
--- NOTE | 2017-07-07 09:32 | ECHO ---
[email or web address] [place] [id number] Main: [phone] Fax: Transthoracic Echocardiogram Name: WILMA GERMAN MR#: [id number] Study Date: 07/06/2017 Study Time: 03:11 PM Date of : 1955 Age: 62 year(s) Height: 160 cm (63 in.) Weight: 61.24 kg (135 lb.) BSA: 1.64 m2 Gender: Female Examination: Limited Echo Indication: Dyspnea/on cardiac toxic medication/assess EF/hx pacer Image Quality: Contrast: Requested by: Laura Reese BP: 99 mmHg/70 mmHg Heart Rate: Rhythm: Indication: Dyspnea/on cardiac toxic medication/assess EF/hx pacer Procedure Staff Rail Car Painter/Sandblaster: Elsa John Physician: Dylan Anderson Requesting Provider: Conclusions: The ejection fraction is estimated to be 60 %. Measurements: Chambers Valvular Assessment AV/MV Valvular Assessment TV/PV Normal Normal Normal Name Value Range Name Value Range Name Value Range LVEF (MOD4): 58 % (>=55 %) EF Range: 60 % Continued Measurements: Findings: The ejection fraction is estimated to be 60 %. Exam Comments: Limited 2-D echo.. (No Signature Object) Patient: WILMA GERMAN Study Date: 07/06/2017 Page 1 of 1 03:11 PM [id number]
[2017-07-07] MEDS: HYDROCHLOROTHIAZIDE 25 MG TAB PO SCH (09:49)
[2017-07-07] MEDS: SPIRONOLACTONE 50 MG TAB PO SCH (09:49)
[2017-07-07] MEDS: traMADol 50 MG TAB PO PRN ×2 (10:22→20:24)
--- NOTE | 2017-07-07 12:30 | SOAPPROG ---
SOAP Progress Note Assessment/Plan: E&M for breast cancer * Met Her2+ breast cancer with liver and bone mets: on gem+trastuzumab last dose was 06/28 (day 8 cycle 6). Disease essentially stable * URI: definitely had flu with possible secondary infection; doing a little better with supportive care and oral antibiotic. When cleared by [facility], ok to go home per oncology. * Flank Pain: nothing new in area on CTA or lumbar CT. UA abnormal but cultures negative. If persists can recheck urine. Subjective: Still would "barking" cough but it is much better. Her energy is improved. Bilateral flank areas still sore. Urinary urgency but no frequency or dysuria. Objective: Vital Signs Temp Pulse Resp BP Pulse Ox 36.6 C 86 17 128/88 H 97 07/07/17 09:08 07/07/17 09:08 07/07/17 09:08 07/07/17 09:08 07/07/17 09:08 07/06/17 07/07/17 07/08/17 05:59 05:59 05:59 Intake Total 3662 Balance 3662 PT 13.7 SEC (12.0-15.0) 07/05/17 18:19 INR 1.03 (0.83-1.16) 07/05/17 18:19 ECHO EF 60% Physical Exam - Physical Exam General Appearance: no apparent distress Respiratory: lungs clear, No rhonchi Cardiac/Chest: regular rate, rhythm Back: CVA tenderness ICD10 Worksheet Patient Problems: Problems Problem Status Onset Breast cancer metastasized to multiple sites Acute Hypoxemia Acute Influenza Acute AICD discharge Acute Abdominal pain Acute Atrial fibrillation Acute Neoplasm of breast, female, malignant Acute Syncope Acute
[2017-07-07] MEDS ORDERED: IPRATROPIUM/ALBUTEROL 3 ML DEYVIAL IH SCH (16:00)
--- NOTE | 2017-07-07 16:52 | HOSPPROG ---
Hospitalist Progress Note Assessment/Plan: 62-year-old female who had a known influenza a positive test on 06/24 but did not undergo treatment. She presented with worsening shortness of breath and cough. Is a known history of metastatic breast carcinoma, metastatic to the bone which per recent CT scans shows that has been stable since September 2016 per Oncology consult. Today the patient continues with a barking cough and feels weak although she is improving slightly. She has no appetite but is eating some. -acute influenza pneumonitis with shortness of breath. CTA of the chest showed no evidence of pulmonary emboli, multiple pulmonary parenchymal nodules, a new right pleural effusion, and stable metastatic disease. We will continue her current pulmonary care with coverage for bacteria and no coverage for the influenza as she is outside the therapeutic window. She is currently oxygenating well on room air -hypotension for relative and responsive partially to IV fluids. This is likely secondary to her acute illness along with volume depletion as indicated by an elevated creatinine which is fallen to a normal range with IV fluids since admission. -acute kidney injury secondary to dehydration and acute illness, now resolved to a normal creatinine with IV fluids -metastatic breast carcinoma: Images would indicate that it is been stable since September 2016. Pain management is current. See Oncology note for details. -elevated LFTs and alkaline phosphatase probably secondary to metastatic breast carcinoma. Right upper quadrant slightly tender. She has no significant abdominal pain. CT scan shows significant liver parenchymal metastases -prolonged QT interval for which the patient has received an AICD. She is doing well -pain management. Pain is currently well controlled on the current therapies. -code status is DNR Plan: Continue current pulmonary care with bronchodilators antibiotics mucolytic and oxygen. Disposition: Possible in 1-2 days with pulmonary care and follow-up with Oncology. * Subjective: Reports she continues to have a very significant barking cough and feels weak although she has a slightly stronger today. Very short walk in the room major very tired and she had to lie down. Objective: Vital Signs Temp Pulse Resp BP Pulse Ox 36.6 C 86 14 124/86 H 94 07/07/17 16:00 07/07/17 16:00 07/07/17 16:00 07/07/17 16:00 07/07/17 16:00 07/06/17 07/07/17 07/08/17 05:59 05:59 05:59 Intake Total 3662 Balance 3662 PT 13.7 SEC (12.0-15.0) 07/05/17 18:19 INR 1.03 (0.83-1.16) 07/05/17 18:19 - Time Spent With Patient Time Spent with Patient: greater than 35 minutes Time Spent with Patient: Greater than 35 minutes spent on this patients care, greater than 50% of time spent counseling, educating, and coordinating care regarding the above mentioned plan. - Pending Discharge Pending Discharge Within 24 Hours: No Pending Discharge Within 48 Hours: Yes Pending Discharge Date: 07/09/17 Pending Discharge Time: 11:00 - Physical Exam Constitutional: chronically ill appearing, other (Patient is coughing frequently with movement and with deep inspiration.) Eyes: PERRL, anicteric sclera Ears, Nose, Mouth, Throat: moist mucous membranes, hearing normal Cardiovascular: regular rate and rhythym, no murmur, rub, or gallop Respiratory: reduced air movement, inspiratory crackles, bronchial breath sounds , rhonchi Gastrointestinal: normoactive bowel sounds, tenderness (Tenderness noted in the right upper quadrant with an enlarged liver that is easily palpable and slightly tender. Spleen is not palpable) Genitourinary: no bladder fullness Skin: warm Musculoskeletal: generalized weakness Neurologic: AAOx3, other Psychiatric: interacting appropriately ICD10 Worksheet Patient Problems: Problems Problem Status Onset Syncope Acute Atrial fibrillation Acute Neoplasm of breast, female, malignant Acute AICD discharge Acute Abdominal pain Acute Breast cancer metastasized to multiple sites Acute Influenza Acute Hypoxemia Acute
[2017-07-07] MEDS: ONDANSETRON 4 MG/2 ML VIAL IVP PRN (18:11)
[2017-07-07] MEDS: IPRATROPIUM/ALBUTEROL 3 ML DEYVIAL IH SCH (19:27)
[2017-07-07] MEDS: guaiFENesin/CODEINE PHOS 10 ML UDCUP PO PRN (20:17)
[2017-07-07] MEDS: TEMAZEPAM 15 MG CAP PO SCH (20:18)
[2017-07-07] MEDS: LORazepam 0.5 MG TAB PO SCH (20:19)
[2017-07-07] MEDS: METHOCARBAMOL 500 MG TAB PO PRN (23:42)
[2017-07-08] MEDS: guaiFENesin/CODEINE PHOS 10 ML UDCUP PO PRN ×3 (02:16→17:26)
[2017-07-08] MEDS: traMADol 50 MG TAB PO PRN ×3 (02:17→14:09)
[2017-07-08 04:33] LABS: PLATELET COUNT 156 10^3/uL (150-400)
--- NOTE | 2017-07-08 08:22 | HOSPPROG ---
Hospitalist Progress Note Assessment/Plan: #URI: positive fo Flu A at OSH clinic. Treat supportively here #metHer2+ breast cancer: chemo per Onc #Dysuria: check UA #Abd distention: she is concerned for progressive malignancy. CT ordered by Oncology #Hypothyroidism: LT4 #Lymphedema: cont diuretics #Diet: Lovenox #Disp: cont inpatient admission for further imaging. Subjective: abdominal distension and discomfort recently Objective: Vital Signs Temp Pulse Resp BP Pulse Ox 36.8 C 86 16 113/75 90 L 07/08/17 08:15 07/08/17 08:15 07/08/17 08:15 07/08/17 08:15 07/08/17 08:15 Laboratory Results 07/08/17 04:07 07/08/17 04:07 07/07/17 07/08/17 07/09/17 05:59 05:59 05:59 Intake Total 3662 4864 Balance 3662 4864 PT 13.7 SEC (12.0-15.0) 07/05/17 18:19 INR 1.03 (0.83-1.16) 07/05/17 18:19 - Physical Exam Constitutional: no apparent distress Eyes: PERRL Ears, Nose, Mouth, Throat: moist mucous membranes Cardiovascular: regular rate and rhythym Respiratory: no respiratory distress Gastrointestinal: normoactive bowel sounds, distension (mild distension, no significant palpation) Genitourinary: no bladder fullness Skin: warm Musculoskeletal: full muscle strength Neurologic: AAOx3, CN II-XII Intact Psychiatric: interacting appropriately ICD10 Worksheet Patient Problems: Problems Problem Status Onset Breast cancer metastasized to multiple sites Acute Hypoxemia Acute Influenza Acute AICD discharge Acute Abdominal pain Acute Atrial fibrillation Acute Neoplasm of breast, female, malignant Acute Syncope Acute
[2017-07-08] MEDS: IPRATROPIUM/ALBUTEROL 3 ML DEYVIAL IH SCH ×2 (08:45→20:08)
[2017-07-08] MEDS: POTASSIUM CL 20 MEQ TAB PO SCH (10:22)
[2017-07-08] MEDS: SPIRONOLACTONE 50 MG TAB PO SCH (10:23)
[2017-07-08] MEDS: HYDROCHLOROTHIAZIDE 25 MG TAB PO SCH (10:23)
[2017-07-08] MEDS: ENOXAPARIN 40 MG/0.4 ML SYR SC SCH (10:23)
[2017-07-08] MEDS: MONTELUKAST SODIUM 10 MG TAB PO SCH (10:23)
[2017-07-08] MEDS: FLUoxetine 10 MG CAP PO SCH (10:23)
[2017-07-08] MEDS: DOXYCYCLINE HYCLATE 100 MG CAP/TAB PO SCH ×2 (10:23→21:34)
[2017-07-08] MEDS: LEVOTHYROXINE 112 MCG TAB PO SCH (10:24)
[2017-07-08] MEDS: BENZONATATE 100 MG CAP PO PRN (12:09)
[2017-07-08] MEDS: IBUPROFEN 600 MG TAB PO PRN (12:10)
[2017-07-08] MEDS: ONDANSETRON 4 MG/2 ML VIAL IVP PRN (12:20)
--- NOTE | 2017-07-08 12:26 | SOAPPROG ---
SOAP Progress Note Assessment/Plan: Assessment: 1.) Influenza- resolving 2.) Pneumonitis secondary to # 1: on doxycycline 3.) Breast cancer on Gemcitabine/Traztuzumab- but Tx held due to recent influenza . Important to sort out if new pain from liver and R CVA region could be metastatic sx. from worsened disease vs. other etiology to explain pain. 4.) Monitor hydration status and continue IVF if needed. 5.) Continue analgesics. Plan: See above . Renal U/S and CT abdomen/pelvis ordered. D/W patient and her family. Continue hospitalization another 24 hours. 07/08/17 12:26 Subjective: Cough better, but having increased R CVA region pain and having increased pain from anterior liver, consistent with pain from prior metastatic breast cancer in the liver. Objective: Afebrile, VSS as noted here Pt looks uncomfortable, has two family members at bedside Has less cough as of this AM. HEENT- pale, anicteric, no oral lesions. Neck - supple Chest- mild resp. distress with deep inspiration. Scattered rhonchi CVS- RSR, no extra HS ABD- soft, NT , no mass or HSM EXT- warm, well perfused, w/o edema LABS- as noted here: Hgb 10.2 Vital Signs Temp Pulse Resp BP Pulse Ox 36.6 C 86 16 113/75 90 L 07/08/17 12:15 07/08/17 08:15 07/08/17 08:15 07/08/17 08:15 07/08/17 08:15 Laboratory Results 07/08/17 04:07 07/08/17 04:07 07/07/17 07/08/17 07/09/17 05:59 05:59 05:59 Intake Total 3662 4864 Balance 3662 4864 PT 13.7 SEC (12.0-15.0) 07/05/17 18:19 INR 1.03 (0.83-1.16) 07/05/17 18:19 ICD10 Worksheet Patient Problems: Problems Problem Status Onset Breast cancer metastasized to multiple sites Acute Hypoxemia Acute Influenza Acute AICD discharge Acute Abdominal pain Acute Atrial fibrillation Acute Neoplasm of breast, female, malignant Acute Syncope Acute
[2017-07-08] MEDS ORDERED: IOPAMIDOL (ISOVUE-300) 100 ML BTL ONE (14:13)
[2017-07-08] MEDS: METHOCARBAMOL 500 MG TAB PO PRN (17:26)
[2017-07-08] MEDS: TEMAZEPAM 15 MG CAP PO SCH (21:33)
[2017-07-08] MEDS: LORazepam 0.5 MG TAB PO SCH (21:33)
[2017-07-09] MEDS: guaiFENesin/CODEINE PHOS 10 ML UDCUP PO PRN (00:02)
[2017-07-09] MEDS: METHOCARBAMOL 500 MG TAB PO PRN ×2 (00:02→08:54)
[2017-07-09] MEDS: BENZONATATE 100 MG CAP PO PRN (02:44)
[2017-07-09 02:50] VITALS: O2SAT 92
[2017-07-09] MEDS: traMADol 50 MG TAB PO PRN (04:09)
[2017-07-09] MEDS: IPRATROPIUM/ALBUTEROL 3 ML DEYVIAL IH SCH (08:51)
[2017-07-09] MEDS: LEVOTHYROXINE 112 MCG TAB PO SCH (08:52)
[2017-07-09] MEDS: SPIRONOLACTONE 50 MG TAB PO SCH (08:52)
[2017-07-09] MEDS: ENOXAPARIN 40 MG/0.4 ML SYR SC SCH (08:52)
[2017-07-09] MEDS: HYDROCHLOROTHIAZIDE 25 MG TAB PO SCH (08:52)
[2017-07-09] MEDS: FLUoxetine 10 MG CAP PO SCH (08:54)
[2017-07-09] MEDS: MONTELUKAST SODIUM 10 MG TAB PO SCH (08:54)
[2017-07-09] MEDS: DOXYCYCLINE HYCLATE 100 MG CAP/TAB PO SCH (08:54)
[2017-07-09 08:55] VITALS: BP 120/79
[2017-07-09 08:58] VITALS: PULSE 88; RESP 12; TEMP 98.2
[2017-07-09] MEDS: POTASSIUM CL 20 MEQ TAB PO SCH (09:06)
--- NOTE | 2017-07-09 11:13 | SOAPPROG ---
SOAP Progress Note Assessment/Plan: Assessment: 1.) Influenza- resolving 2.) Pneumonitis secondary to # 1: on doxycycline 3.) Breast cancer on Gemcitabine/Traztuzumab- but Tx held due to recent influenza . Important to sort out if new pain from liver. New disease progression discussed with Radha at the bedside at her request. She was given a copy of her CT report and was informed of disease progression. She has an appt. to review her situation with Dr. Fish tomorrow, as we discussed today. 4.) Agree with plans for discharge today on tramadol and Robaxin for sx. relief. Pt requested that she did not need any narcotic pain relievers. Plan: See above . Looks like pt. stable for discharge today as D/W patient today. 07/09/17 11:10 Subjective: Resp. sx. and infectious sx. are markedly better. No new sx. Still with increased pain from RUQ region Looking forward to be able to go home. Objective: Afebrile, VSS as noted here Skin pale, anicteric, no formally examined today. Labs as noted here: Imaging: significant increase in liver metastatic disease in CT scan report. Vital Signs Temp Pulse Resp BP Pulse Ox 36.8 C 88 12 120/79 92 07/09/17 08:00 07/09/17 08:00 07/09/17 08:00 07/09/17 08:52 07/09/17 08:00 Laboratory Results 07/08/17 04:07 07/08/17 04:07 07/08/17 07/09/17 07/10/17 05:59 05:59 05:59 Intake Total 4864 1650 Output Total 300 Balance 4864 1350 PT 13.7 SEC (12.0-15.0) 07/05/17 18:19 INR 1.03 (0.83-1.16) 07/05/17 18:19 ICD10 Worksheet Patient Problems: Problems Problem Status Onset Breast cancer metastasized to multiple sites Acute Hypoxemia Acute Influenza Acute AICD discharge Acute Abdominal pain Acute Atrial fibrillation Acute Neoplasm of breast, female, malignant Acute Syncope Acute
[2017-07-09] MEDS ORDERED: LORazepam 1 MG TAB SL ONE (11:25)
[2017-07-09] MEDS ORDERED: predniSONE 20 MG TAB PO ONE (11:25)
--- NOTE | 2017-07-09 11:40 | ASDISCHSUM ---
Discharge Information Plan Status:Home with No Needs Medically Cleared to Leave:07/08/2017 Discharge Date:07/08/2017 CM D/C Disposition:Home, Routine, Self-Care ADT D/C Disposition:Home, Routine, Self-Care Projected Discharge Date:07/08/2017 Transportation at D/C:Family Discharge Delay Reason: Follow-Up Date:07/08/2017 Discharge Slot: Final Diagnosis: Placement Information Patient Contact Information Contact Name:CASSANDRA Relationship:Life Partner Address:[address] City:[place] Alternate Phone: [facility]/Zip Code:[place] [address] Email: Financial Information Financial Class:[facility] Primary Plan Desc:[employer] LOCAL Primary Plan Number:[id number] Secondary Plan Desc: Secondary Plan Number: Assessment Information [facility] CM Progress Note CM Note CM Note Notes: Pt with hx of stage IV breast ca admitted for flu. It is unclear if pt will have any DC needs. CM to follow. Date Signed: 07/06/2017 04:18 PM Electronically Signed By:Evie Hurtado LCSW Intervention Information
--- NOTE | 2017-07-09 12:22 | PDDCSUM ---
Discharge Summary Discharge Summary: DISCHARGE DIAGNOSES: -acute influenza a infection (tested positive at another facility before arrival here) -suspected acute bronchitis -progression of metastatic breast cancer on chemotherapy CONSULTANTS: Dr. Lionel Donohue PROCEDURES: CT scan of abdomen pelvis CT scan of chest Ultrasound of abdomen HOSPITAL COURSE SUMMARY: This patient came into the hospital with typical influenza symptoms and was diagnosed by testing with influenza a infection. As she had had symptoms for approximately a week she was not started on Tamiflu. She was treated with supportive care, and actually had a fairly rapid recovery of her symptoms. At this point she has minimal respiratory symptoms is not coughing much at all, is eating well, is up walking the hallway, is not short of breath. The there was some abnormality of lung exam at the time of admission that suggested the possibility of some bronchitis and she was given some doxycycline. At this point in terms of her viral infection bronchitis she is stable for discharge to home. The patient is on chemotherapy for stage IV breast cancer. On initial imaging there was finding of lung nodules and masses increased from her previous imaging. A CT scan was done of her abdomen pelvis which also showed significant increase in metastatic disease in the liver. At this point is felt that she is probably not responding mother current chemotherapy. She has a appointment tomorrow July [address] Valdemar Fish in oncology clinic and will review the CT scan findings with him and review her treatment plan. Dr. Fish is aware of the CT scan findings at this time. PENDING TEST RESULTS: None MEDICATION CHANGES: Addition of tramadol and Robaxin for muscular back pain FOLLOW-UP PLAN: With Dr. Valdemar Fish tomorrow at Oncology Clinic to review her symptoms and her breast cancer therapy program Greater than 35 minutes bedside and care coordination time today
== END 2017-07-09 13:20 | disposition home or self-care (01) | DRG 194 ==
LOC: F1N 20:13 → OBSVTOIN 07-06 15:59
PROVIDERS: ADMIT Internal Medicine; ATTEND Internal Medicine
DX: J10.1 Influenza due to other identified influenza virus with other respiratory manifestations (principal); J40 Bronchitis, not specified as acute or chronic; C50.619 Malignant neoplasm of axillary tail of unspecified female breast; C79.51 Secondary malignant neoplasm of bone; C78.7 Secondary malignant neoplasm of liver and intrahepatic bile duct; C78.00 Secondary malignant neoplasm of unspecified lung; R30.0 Dysuria; I45.81 Long QT syndrome; E03.9 Hypothyroidism, unspecified; Z98.1 Arthrodesis status; Z87.891 Personal history of nicotine dependence; Z92.3 Personal history of irradiation; Z95.810 Presence of automatic (implantable) cardiac defibrillator
CPT/HCPCS: 97161-GP; 97165-GO; 97530-GO; G0378; J1642; J1650; J2405; J7512; J7613; Q9967

== ENCOUNTER 2018-03-23 14:09 | Observation (INO) | payer OTHER ==
[2018-03-23 14:53] LABS: PLATELET COUNT 262 10^3/uL (150-400)
--- NOTE | 2018-03-23 15:03 | EDPHY ---
H & P Stated Complaint: SOB, stage 4 breast CA, abd pain and distention, and back pain Time Seen by Provider: 03/23/18 14:44 HPI/ROS: CHIEF COMPLAINT: Shortness of breath, abdominal distention HISTORY OF PRESENT ILLNESS: Patient is a 62-year-old female with a history of breast cancer with metastasis to her liver lungs and bone stage IV who presents to the emergency department complaining of shortness of breath. She states that she had a PET scan on Saturday in [place] which she is currently receiving radiation and chemotherapy. That PET scan showed a large right pleural effusion but decreased tumor burden overall. Patient has also had mild abdominal discomfort and distention for the last month. She had a CT scan 2 weeks ago and was diagnosed with colitis. She was treated with antibiotics which she has since finished. She states that she does not feel better and in fact feels that her abdomen is more bloated. No vomiting. No diarrhea. No blood in her stool. Her oncologist here is Dr. Fish. Severity: Moderate Modifying factors: Exertion REVIEW OF SYSTEMS: Constitutional: denies: chills, fever, recent illness, recent injury EENTM: denies: blurred vision, double vision, nose congestion Respiratory: See HPI Cardiac: denies: chest pain, irregular heart rate, lightheadedness, palpitations Gastrointestinal/Abdominal: See HPI denies: diarrhea, nausea, vomiting, blood streaked stools Genitourinary: denies: dysuria, frequency, hematuria, pain Musculoskeletal: denies: joint pain, muscle pain Skin: denies: lesions, rash, jaundice, bruising Neurological: denies: headache, numbness, paresthesia, tingling, dizziness, weakness Hematologic/Lymphatic: denies: blood clots, easy bleeding, easy bruising Immunologic/allergic: denies: HIV/AIDS, transplant 10 systems reviewed and negative except as noted EXAM: GENERAL: no acute distress. HEAD: Atraumatic, normocephalic. EYES: Pupils equal round and reactive to light, extraocular movements intact, sclera anicteric, conjunctiva are normal. ENT: TMs normal, nares patent, oropharynx clear without exudates. Moist mucous membranes. NECK: Normal range of motion, supple without lymphadenopathy or JVD. LUNGS: Saturating 94% on room air. Breath sounds clear to auscultation bilaterally and equal. No wheezes rales or rhonchi. HEART: Regular rate and rhythm without murmurs, rubs or gallops. ABDOMEN: Moderate distension, Soft, nontender, normoactive bowel sounds. No guarding, no rebound. No masses appreciated. BACK: No CVA tenderness, no spinal tenderness, step-offs or deformities EXTREMITIES: Normal range of motion, no pitting or edema. No clubbing or cyanosis. NEUROLOGICAL: Cranial nerves II through XII grossly intact. Normal speech, normal gait. 5/5 strength, normal movement in all extremities, normal sensation , normal reflexes PSYCH: Normal mood, normal affect. SKIN: Slightly dark, Warm, dry, normal turgor, no visible rashes or lesions. Source: Patient Exam Limitations: No limitations - Personal History Current Tetanus/Diphtheria Vaccine: Yes Tetanus Vaccine Date: 2009 - Medical/Surgical History Hx Asthma: No Hx Chronic Respiratory Disease: No Hx Diabetes: No Hx Cardiac Disease: No Hx Renal Disease: No Hx Cirrhosis: No Hx Alcoholism: No Hx HIV/AIDS: No Hx Splenectomy or Spleen Trauma: No Other PMH: STAGE 4 BREAST CANCER, with mets to lung and liver and bone. 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, pace maker, syncope - Family History Significant Family History: No pertinent family hx - Social History Smoking Status: Former smoker Alcohol Use: Sober Drug Use: None Constitutional: Initial Vital Signs Temperature (C) 36.9 C 03/23/18 14:09 Heart Rate 91 03/23/18 14:09 Respiratory Rate 16 03/23/18 14:09 Blood Pressure 129/71 H 03/23/18 14:09 O2 Sat (%) 94 03/23/18 14:09 O2 Delivery Mode Nasal Cannula O2 (L/minute) 2 Allergies/Adverse Reactions: prochlorperazine maleate [From Compazine] Allergy (Severe, Verified 07/05/17 20: 39) Other-Enter Comments promethazine HCl [From Phenergan] Allergy (Severe, Verified 07/05/17 20:39) Other-Enter Comments cetirizine Allergy (Unknown, Verified 03/03/17 14:06) prolonged QT fentanyl Allergy (Verified 03/03/17 14:06) Vomiting prochlorperazine [From Compazine] Allergy (Verified 03/03/17 14:06) Other-Enter Comments prochlorperazine edisylate [From Compazine] Allergy (Verified 03/03/17 14:06) Other-Enter Comments Home Medications: Medication Instructions Recorded Montelukast Sodium 10 mg PO DAILY 07/09/15 FLUoxetine [Prozac 10 MG (*)] 10 mg PO DAILY 03/15/16 LORazepam [Ativan (*)] 0.5 mg PO HS 03/15/16 Levothyroxine [Synthroid 112 mcg 112 mcg PO DAILY@06 03/15/16 (*)] Potassium Cl [Klor-Con 20 meq (*)] 60 meq PO DAILY 03/15/16 Spironolactone [Aldactone 25 MG 50 mg PO DAILY 03/15/16 (*)] Temazepam [Restoril 15 MG (*)] 30 mg PO HS 03/15/16 Acetaminophen [Tylenol ES 500 mg 1,000 mg PO Q6 PRN 07/05/17 (*)] Carboxymethylcellulose 1% [Refresh 1 drop EACHEYE DAILY PRN 07/05/17 Celluvisc (*)] Herbals/Supplements -Info Only 1 ea PO DAILY 07/05/17 Ascorbic Acid [Vitamin C 500 mg 500 mg PO BID 03/23/18 (*)] Chemo 1 each PO Q10D 03/23/18 Cholecalciferol Vit D3 [Vitamin D3 1,000 units PO DAILY 03/23/18 (*)] LORazepam [Ativan (*)] 0.5 mg PO DAILY PRN 03/23/18 Megestrol Acetate [Megace 40 mg 40 mg PO TID PRN 03/23/18 (*)] Ondansetron Odt [Zofran Odt 4 mg 4 mg PO Q10D PRN 03/23/18 (*)] Polyethylene Glycol 3350 [Miralax 17 gm PO DAILY 03/23/18 17 gm (*)] Medical Decision Making - Diagnostics Imaging Results: Imaging Impressions Chest X-Ray 03/23/18 14:40 Impression: 1. New dense right basilar airspace consolidation and suspected moderate effusion. 2. No left pleural effusion or edema. 3. Metastatic pulmonary nodules unchanged. Abdomen Ultrasound 03/23/18 14:56 Impression: Small volume ascites limited to the right upper and right lower quadrant. Imaging: Discussed imaging studies w/ business law teacher Radiologist ED Course/Re-evaluation: 4:30 p.m. We had a long discussion about the patient's lab work and pleural effusion and worsening ascites. Her LFTs are significantly worse than 1 week ago. I suggested admission for thoracentesis and possibly pleurocentesis. We discussed the possibility of PE however decided to pursue the effusion 1st and if her symptoms did not improve then possibly consider workup for PE. I discussed case with Dr. Schneider who will admit to the medical service and agrees with this plan Differential Diagnosis: Partial list of the Differential diagnosis considered include but were not limited to; pleural effusion, ascites, PE, and although unlikely based on the history and physical exam, I also considered acute coronary disease, pneumonia. - Data Points Laboratory Results: Laboratory Results 03/23/18 14:30 03/23/18 14:30 03/23/18 03/23/18 03/23/18 14:30 14:30 14:30 WBC 4.43 10^3/uL 10^3/uL (3.80-9.50) RBC 3.27 10^6/uL L 10^6/uL (4.18-5.33) Hgb 9.3 g/dL L g/dL (12.6-16.3) Hct 29.1 % L % (38.0-47.0) MCV 89.0 fL fL (81.5-99.8) MCH 28.4 pg pg (27.9-34.1) MCHC 32.0 g/dL L g/dL (32.4-36.7) RDW 21.2 % H % (11.5-15.2) Plt Count 262 10^3/uL 10^3/uL (150-400) MPV 10.7 fL fL (8.7-11.7) Neut % (Auto) 84.0 % H % (39.3-74.2) Lymph % (Auto) 7.7 % L % (15.0-45.0) [place] % (Auto) 4.7 % % (4.5-13.0) Eos % (Auto) 2.7 % % (0.6-7.6) Baso % (Auto) 0.7 % % (0.3-1.7) Nucleat RBC Rel Count 0.0 % % (0.0-0.2) Absolute Neuts (auto) 3.72 10^3/uL 10^3/uL (1.70-6.50) Absolute Lymphs (auto) 0.34 10^3/uL L 10^3/uL (1.00-3.00) Absolute Monos (auto) 0.21 10^3/uL L 10^3/uL (0.30-0.80) Absolute Eos (auto) 0.12 10^3/uL 10^3/uL (0.03-0.40) Absolute Basos (auto) 0.03 10^3/uL 10^3/uL (0.02-0.10) Absolute Nucleated RBC 0.00 10^3/uL 10^3/uL (0-0.01) Immature Gran % 0.2 % % (0.0-1.1) Immature Gran # 0.01 10^3/uL 10^3/uL (0.00-0.10) RBC/WBC/PLT Morphology TNP Platelet Estimate ADEQUATE (ADEQ) Polychromasia 1+ H Hypochromasia 1+ H Tear Drop Cells 1+ H Oval Macrocytes 1+ H Echinocytes 1+ H Acanthocytes (Spur) 1+ H Sodium 140 mEq/L mEq/L REJ (135-145) Potassium 4.0 mEq/L mEq/L REJ (3.3-5.0) Chloride 107 mEq/L mEq/L REJ (97-110) Carbon Dioxide 24 mEq/l mEq/l REJ (22-31) Anion Gap 9 mEq/L mEq/L REJ (8-16) BUN 13 mg/dL mg/dL REJ (7-23) Creatinine 0.5 mg/dL L mg/dL REJ (0.6-1.0) Estimated GFR > 60 REJ Glucose 96 mg/dL mg/dL REJ (70-100) Calcium 9.2 mg/dL mg/dL REJ (8.5-10.4) Total Bilirubin 2.9 mg/dL H mg/dL (0.1-1.4) Conjugated Bilirubin 1.8 mg/dL H mg/dL (0.0-0.5) Unconjugated Bilirubin 1.1 mg/dL mg/dL (0.0-1.1) AST 189 IU/L H IU/L (14-46) ALT 94 IU/L H IU/L (9-52) Alkaline Phosphatase 413 IU/L H IU/L (38-126) Total Protein 6.5 g/dL g/dL (6.3-8.2) Albumin 3.3 g/dL L g/dL (3.5-5.0) Lipase 181 IU/L IU/L (23-300) Departure - Departure Disposition: [facility] Inpatient Acute Clinical Impression: Pleural effusion on right Ascites Qualifiers: Ascites type: malignant Qualified Code(s): R18.0 - Malignant ascites Condition: Fair
[2018-03-23] MEDS ORDERED: HYDROmorphone HCL 0.5 MG/0.5 ML SYR IVP PRN (17:19)
[2018-03-23] MEDS ORDERED: ONDANSETRON 4 MG/2 ML VIAL IVP PRN (17:19)
[2018-03-23] MEDS ORDERED: ACETAMINOPHEN 325 MG TAB PO PRN (17:19)
[2018-03-23] MEDS ORDERED: HYDROmorphONE/DILAUDID 2 MG TAB PO PRN (17:19)
[2018-03-23] MEDS ORDERED: ONDANSETRON DISINTEGRATING 4 MG TAB PO PRN (17:19)
[2018-03-23] MEDS ORDERED: LORazepam 0.5 MG TAB PO PRN (19:56)
[2018-03-23] MEDS ORDERED: ACETAMINOPHEN 500 MG TAB PO PRN (19:56)
[2018-03-23] MEDS ORDERED: MEGESTROL ACETATE 40 MG TAB PO PRN (19:56)
[2018-03-23] MEDS ORDERED: CARBOXYMETHYLCELLULOSE 1% 0.4 ML DROPERETTE EACHEYE PRN (19:56)
[2018-03-23] MEDS ORDERED: LORazepam 0.5 MG TAB PO SCH (21:00)
[2018-03-23] MEDS ORDERED: TEMAZEPAM 15 MG CAP PO SCH (21:00)
--- NOTE | 2018-03-23 22:36 | PDGENHP ---
History and Physical - Chief Complaint Acute shortness of breath - History of Present Illness Primary care provider: Dr. Shona Agarwal Primary oncologist: Dr. Valdemar Fish Primary head of mobile: Dr. Currie HPI: 62-year-old female presenting with acute shortness of breath characterized as inability to take deep breaths with associated abdominal discomfort, abdominal distention, abdominal bloating, generalized fatigue and weight gain. The patient reports that her symptoms became particularly noticeable on the day prior to presentation and the duration has been persistent thereafter. She checked her weight and noted that she had increased by 5 lb over the last 24 hr. She reports that she has otherwise been taking all of her home medications and she recently returned to [place] from [place] after receiving her most recent chemotherapy. She denies ever having a thoracentesis and she reports that over the past several weeks she has been attempting to treat abdominal pain secondary to what had been diagnosed as colitis, receiving approximately 2 weeks of antibiotics. History Information - Allergies/Home Medication List Allergies/Adverse Reactions: prochlorperazine maleate [From Compazine] Allergy (Severe, Verified 07/05/17 20: 39) Other-Enter Comments promethazine HCl [From Phenergan] Allergy (Severe, Verified 07/05/17 20:39) Other-Enter Comments cetirizine Allergy (Unknown, Verified 03/03/17 14:06) prolonged QT fentanyl Allergy (Verified 03/03/17 14:06) Vomiting prochlorperazine [From Compazine] Allergy (Verified 03/03/17 14:06) Other-Enter Comments prochlorperazine edisylate [From Compazine] Allergy (Verified 03/03/17 14:06) Other-Enter Comments Home Medications: Montelukast Sodium 10 mg PO DAILY 07/09/15 [Last Taken 03/23/18] FLUoxetine [Prozac 10 MG (*)] 10 mg PO DAILY 03/15/16 [Last Taken 03/23/18] LORazepam [Ativan (*)] 0.5 mg PO HS 03/15/16 [Last Taken 03/22/18] Levothyroxine [Synthroid 112 mcg (*)] 112 mcg PO DAILY@03/15/16 [Last Taken 03/23/18] Potassium Cl [Klor-Con 20 meq (*)] 60 meq PO DAILY 03/15/16 [Last Taken 03/23/18 ] Spironolactone [Aldactone 25 MG (*)] 50 mg PO DAILY 03/15/16 [Last Taken ] Temazepam [Restoril 15 MG (*)] 30 mg PO HS 03/15/16 [Last Taken 03/22/18] Acetaminophen [Tylenol ES 500 mg (*)] 1,000 mg PO Q6 PRN 07/05/17 [Last Taken 08:00] Carboxymethylcellulose 1% [Refresh Celluvisc (*)] 1 drop EACHEYE DAILY PRN 07/05 [Last Taken 03/23/18] Herbals/Supplements -Info Only 1 ea PO DAILY 07/05/17 [Last Taken Unknown] Ascorbic Acid [Vitamin C 500 mg (*)] 500 mg PO BID 03/23/18 [Last Taken Unknown] Chemo 1 each PO Q10D 03/23/18 [Last Taken Unknown] Cholecalciferol Vit D3 [Vitamin D3 (*)] 1,000 units PO DAILY 03/23/18 [Last Taken Unknown] LORazepam [Ativan (*)] 0.5 mg PO DAILY PRN 03/23/18 [Last Taken Unknown] Megestrol Acetate [Megace 40 mg (*)] 40 mg PO TID PRN 03/23/18 [Last Taken Unknown] Ondansetron Odt [Zofran Odt 4 mg (*)] 4 mg PO Q10D PRN 03/23/18 [Last Taken Unknown] Polyethylene Glycol 3350 [Miralax 17 gm (*)] 17 gm PO DAILY 03/23/18 [Last Taken 03/22/18] I have personally reviewed and updated: family history, medical history, social history, surgical history - Past Medical History Additional medical history: Metastatic breast cancer to the liver, lungs, bones with notable recurrence in 2012, subsequent chemo and radiation treatment in [facility], palliatively. Recent diagnosis of colitis. Congenital QT prolongation. Lymphedema - Surgical History Additional surgical history: AICD. Cervical fusion. Sympathetic denervation surgery - Family History Additional family history: Prolonged QT syndrome - Social History Smoking Status: Former smoker Alcohol Use: Sober Drug Use: None Additional social history: Independent in her ADLs comma she lives in [place] but travels back to [facility] every 2 weeks for palliative chemotherapy Review of Systems Review of Systems: ROS: 10pt was reviewed & negative except for what was stated in HPI & below Constitutional: Reports: other (Fatigue) Respiratory: Reports: shortness of breath Gastrointestinal: Reports: abdominal pain, abdominal distention Physical Exam Physical Exam: Temp Pulse Resp BP Pulse Ox 36.8 C 87 18 119/77 95 03/23/18 19:50 03/23/18 19:50 03/23/18 19:50 03/23/18 19:50 03/23/18 19:50 O2 (L/minute) 3 Constitutional: not in pain, chronically ill appearing, uncomfortable Eyes: PERRL, EOMI, icteric sclera Ears, Nose, Mouth, Throat: moist mucous membranes, hearing normal, ears appear normal, no oral mucosal ulcers Cardiovascular: systolic murmur (1/6 at the sternum and apex), No irregularly irregular, No tachycardia, No edema Respiratory: reduced air movement (Right lateral base), inspiratory crackles ( Mid right segment), No expiratory wheeze, No bronchial breath sounds, No respiratory distress Gastrointestinal: normoactive bowel sounds, tenderness (Mild to moderate palpation), ascites, distension (Moderate) Skin: warm, No abrasion, No rash (Over abdomen) Neurologic: AAOx3, sensation intact bilaterally, No weakness (Motor strength 5/ 5 bilateral lower extremity) Psychiatric: interacting appropriately, not anxious, not encephalopathic, thought process linear Lab Data & Imaging Review 03/23/18 14:30 03/23/18 14:30 WBC 4.43 10^3/uL (3.80-9.50) 03/23/18 14:30 RBC 3.27 10^6/uL (4.18-5.33) L 03/23/18 14:30 Hgb 9.3 g/dL (12.6-16.3) L 03/23/18 14:30 Hct 29.1 % (38.0-47.0) L 03/23/18 14:30 MCV 89.0 fL (81.5-99.8) 03/23/18 14:30 MCH 28.4 pg (27.9-34.1) 03/23/18 14:30 MCHC 32.0 g/dL (32.4-36.7) L 03/23/18 14:30 RDW 21.2 % (11.5-15.2) H 03/23/18 14:30 Plt Count 262 10^3/uL (150-400) 03/23/18 14:30 MPV 10.7 fL (8.7-11.7) 03/23/18 14:30 Neut % (Auto) 84.0 % (39.3-74.2) H 03/23/18 14:30 Lymph % (Auto) 7.7 % (15.0-45.0) L 03/23/18 14:30 [place] % (Auto) 4.7 % (4.5-13.0) 03/23/18 14:30 Eos % (Auto) 2.7 % (0.6-7.6) 03/23/18 14:30 Baso % (Auto) 0.7 % (0.3-1.7) 03/23/18 14:30 Nucleat RBC Rel Count 0.0 % (0.0-0.2) 03/23/18 14:30 Absolute Neuts (auto) 3.72 10^3/uL (1.70-6.50) 03/23/18 14:30 Absolute Lymphs (auto) 0.34 10^3/uL (1.00-3.00) L 03/23/18 14:30 Absolute Monos (auto) 0.21 10^3/uL (0.30-0.80) L 03/23/18 14:30 Absolute Eos (auto) 0.12 10^3/uL (0.03-0.40) 03/23/18 14:30 Absolute Basos (auto) 0.03 10^3/uL (0.02-0.10) 03/23/18 14:30 Absolute Nucleated RBC 0.00 10^3/uL (0-0.01) 03/23/18 14:30 Immature Gran % 0.2 % (0.0-1.1) 03/23/18 14:30 Immature Gran # 0.01 10^3/uL (0.00-0.10) 03/23/18 14:30 RBC/WBC/PLT Morphology TNP 03/23/18 14:30 Platelet Estimate ADEQUATE (ADEQ) 03/23/18 14:30 Polychromasia 1+ H 03/23/18 14:30 Hypochromasia 1+ H 03/23/18 14:30 Tear Drop Cells 1+ H 03/23/18 14:30 Oval Macrocytes 1+ H 03/23/18 14:30 Echinocytes 1+ H 03/23/18 14:30 Acanthocytes (Spur) 1+ H 03/23/18 14:30 Sodium 140 mEq/L (135-145) 03/23/18 14:30 Potassium 4.0 mEq/L (3.3-5.0) 03/23/18 14:30 Chloride 107 mEq/L (97-110) 03/23/18 14:30 Carbon Dioxide 24 mEq/l (22-31) 03/23/18 14:30 Anion Gap 9 mEq/L (8-16) 03/23/18 14:30 BUN 13 mg/dL (7-23) 03/23/18 14:30 Creatinine 0.5 mg/dL (0.6-1.0) L 03/23/18 14:30 Estimated GFR > 60 03/23/18 14:30 Glucose 96 mg/dL (70-100) 03/23/18 14:30 Calcium 9.2 mg/dL (8.5-10.4) 03/23/18 14:30 Total Bilirubin 2.9 mg/dL (0.1-1.4) H 03/23/18 14:30 Conjugated Bilirubin 1.8 mg/dL (0.0-0.5) H 03/23/18 14:30 Unconjugated Bilirubin 1.1 mg/dL (0.0-1.1) 03/23/18 14:30 AST 189 IU/L (14-46) H 03/23/18 14:30 ALT 94 IU/L (9-52) H 03/23/18 14:30 Alkaline Phosphatase 413 IU/L (38-126) H 03/23/18 14:30 Total Protein 6.5 g/dL (6.3-8.2) 03/23/18 14:30 Albumin 3.3 g/dL (3.5-5.0) L 03/23/18 14:30 Lipase 181 IU/L (23-300) 03/23/18 14:30 Visualized and Interpreted Chest x-ray results: Yes Chest X-Ray results: effusion (Right-sided, moderate), other (Metastatic pulmonary nodules) Assessment & Plan Assessment: 62-year-old female presents with acute shortness of breath most likely secondary to acute malignant pleural effusion with comorbid malignant ascites and stage IV breast cancer Plan: 1. Pleural effusion. Acute, most likely malignant, new diagnosis and will receive further workup. Patient's presenting symptoms are most likely secondary to this effusion and I have discussed this in great detail with the patient, suggesting that the most likely etiology is malignant and that her absence of leukocytosis, fever, indicate this is unlikely to be infectious. -that being said, this a new effusion, and I would recommend diagnostic and therapeutic thoracentesis in a.m. -I have also discussed the possibility of palliative PleurX catheter for the patient given the likelihood of reaccumulation since it is most likely malignant in nature -the patient would like to consider this option but hold off on PleurX catheter at the present time, given the risks of infection and her ongoing, anticipated immunosuppression from chemotherapy 2. Malignant ascites. Most likely cause of patient's current abdominal distension and abdominal discomfort, again with no clinical signs of infection -ultrasound demonstrating small amount of ascites, likely low yield for paracentesis therapeutically at this time -discussed this with the patient, I recommended being more aggressive with her diuretic regimen to reduce fluid accumulation -initiate Lasix 40 mg daily with her spironolactone 50 mg daily, continue aggressive supplemental potassium given her history of QT prolongation and risk of arrhythmia if she gets hypokalemic -she will require regular outpatient electrolyte follow-up in this was discussed with the patient -she may choose to have a follow-up outpatient ultrasound and possible therapeutic paracentesis before her next trip to [place], this should be arranged by either her primary care provider or [facility] 3. Stage IV breast cancer. Reoccurred in 2011, currently with mets to the liver , lungs, bones -reviewed outside records including her PET scan results from 03/19/2018 which demonstrate an increase in activity in the liver lesions, potentially less activity and some of the lung lesions but with evidence of ongoing disease process overall -patient has requested oncology consultation during this hospital stay and I think this will be helpful to help the patient put in to context the progression of her disease as well as her choice to continue palliative chemotherapy in [place] Diet. Regular Prophylaxis. High risk patient, hold pharmacologic given thoracentesis tomorrow a.m., SCDs Code. Her partner is her MD MCKINNEY, the patient wishes to be do not intubate Disposition. Anticipated discharge 03/24, pending stability of the above. I have discussed patient's presentation with Dr. Erik Fajardo, he and I both agree the patient would benefit from thoracentesis at this time.
[2018-03-23] MEDS: ASCORBIC ACID 500 MG TAB PO SCH (23:48)
[2018-03-24 04:54] LABS: PLATELET COUNT 219 10^3/uL (150-400)
[2018-03-24 05:02] LABS: INR 1.2 (0.83-1.16); PROTIME(PATIENT) 15.4 SEC (12.0-15.0)
[2018-03-24] MEDS ORDERED: LEVOTHYROXINE 112 MCG TAB PO SCH (06:00)
[2018-03-24] MEDS ORDERED: LIDOCAINE 1% 300 MG/30 ML SDV ONE (08:40)
[2018-03-24] MEDS ORDERED: Herbals/Supplements -Info Only PO SCH (09:00)
[2018-03-24] MEDS ORDERED: MONTELUKAST SODIUM 10 MG TAB PO SCH (09:00)
[2018-03-24] MEDS ORDERED: POTASSIUM CL 20 MEQ TAB PO SCH (09:00)
[2018-03-24] MEDS ORDERED: FUROSEMIDE 40 MG TAB PO SCH (09:00)
[2018-03-24] MEDS ORDERED: POLYETHYLENE GLYCOL 3350 17 GM PKT PO SCH (09:00)
[2018-03-24] MEDS ORDERED: CHOLECALCIFEROL VIT D3 1,000 UNITS TAB PO SCH (09:00)
[2018-03-24] MEDS ORDERED: SPIRONOLACTONE 25 MG TAB PO SCH (09:00)
[2018-03-24] MEDS ORDERED: FLUoxetine 10 MG CAP PO SCH (09:00)
[2018-03-24] MEDS: ASCORBIC ACID 500 MG TAB PO SCH (11:07)
[2018-03-24] MEDS ORDERED: KETOROLAC 15 MG/1 ML SDV IVP SCH (12:00)
[2018-03-24 12:08] VITALS: BP 116/69
--- NOTE | 2018-03-24 12:48 | ASMTCASEMG ---
Living Arrangements What is your living Answers: With Partner arrangement? Who do you live with? Type Of Residence What kind of residence do Answers: House you live in? Discharge Plan Comments Coordination Status Comments Notes: Patient is a 62yo female who has metastatic breast cancer to the liver, lungs, bones with notable reoccurance in 2011. Patient just recently returned from chemo and radiation treatment in [place], [place], palliatively. Patient to get thoracentesis for pleural effusion. PT has been ordered. Patient has good support with family and friends. She will be returning to [place] to continue palliative chemotherapy. D/C plan TBD. CM will follow. Date Signed: 03/24/2018 12:47 PM Electronically Signed By:Gi Cabrera LCSW
--- NOTE | 2018-03-24 12:56 | PDCONSULT ---
[employer] Operator Note: Hematology/oncology consultation note. Requesting provider: Ursula Noel Reason for consultation: Metastatic breast cancer History of present illness: This is a 62-year-old female with history metastatic breast cancer who was previously followed by Dr. Fish and on hospice who presents today with pleural effusion and worsening ascites. She was last seen in our clinic in July of 2017. At that time, it was recommended that she proceed with hospice as she had exhausted treatment options. She has since went to [place] to receive non standard of care treatment with insulin in low-dose chemotherapy. She states that her physicians there told her that her disease is improving and is under control. She presented to the emergency room due to worsening shortness of breath. She was noted to have a large right pleural effusion for which she underwent thoracentesis. She also has had worsening ascites. Past medical history: 1. Metastatic breast cancer 2. Congenital long QT syndrome 3. Lymphedema 4. Sympathetic denervation Past surgical history: Cervical fusion. Social history: She is a nonsmoker. She does have a lifelong partner who accompanies her today. Family history: Unremarkable. Medications: Updated in EMR and reviewed. Allergies: Reviewed in the EMR. Temp Pulse Resp BP Pulse Ox 36.5 C 86 12 116/69 97 03/24/18 11:00 03/24/18 11:00 03/24/18 11:00 03/24/18 11:00 03/24/18 11:00 O2 (L/minute) 2 Physical examination: General: Pleasant-appearing female appears in no acute distress HEENT: Opiates clear extraocular movements are intact pupils equal round reactive to light Pulmonary: Decreased breath sounds at right base. Left is clear. Cardiovascular: Regular rate and rhythm no murmurs gallops rubs Abdomen: Slightly distended soft nontender bowel sounds are present Extremities: No cyanosis clubbing or edema Skin: No skin lesions Neuro: Motor and sensation intact LABORATORY 03/24/18 03/24/18 03/24/18 09:00 04:20 04:20 WBC RBC Hgb Hct MCV MCH MCHC RDW Plt Count MPV Neut % (Auto) Lymph % (Auto) [place] % (Auto) Eos % (Auto) Baso % (Auto) Nucleat RBC Rel Count Absolute Neuts (auto) Absolute Lymphs (auto) Absolute Monos (auto) Absolute Eos (auto) Absolute Basos (auto) Absolute Nucleated RBC Immature Gran % Immature Gran # RBC/WBC/PLT Morphology Platelet Estimate Polychromasia Hypochromasia Basophilic Stippling Microcytic Cells Tear Drop Cells Oval Macrocytes Echinocytes Acanthocytes (Spur) Keratocytes Smear Review By PT 15.4 SEC H SEC (12.0-15.0) INR 1.20 H (0.83-1.16) APTT 31.7 SEC SEC (23.0-38.0) Sodium 138 mEq/L mEq/L (135-145) Potassium 4.0 mEq/L mEq/L (3.3-5.0) Chloride 109 mEq/L mEq/L (97-110) Carbon Dioxide 23 mEq/l mEq/l (22-31) Anion Gap 6 mEq/L L mEq/L (8-16) BUN 12 mg/dL mg/dL (7-23) Creatinine 0.5 mg/dL L mg/dL (0.6-1.0) Estimated GFR > 60 Glucose 78 mg/dL mg/dL (70-100) Calcium 9.0 mg/dL mg/dL (8.5-10.4) Total Bilirubin 2.6 mg/dL H mg/dL (0.1-1.4) Conjugated Bilirubin 1.7 mg/dL H mg/dL (0.0-0.5) Unconjugated Bilirubin 0.9 mg/dL mg/dL (0.0-1.1) AST 145 IU/L H IU/L (14-46) ALT 88 IU/L H IU/L (9-52) Alkaline Phosphatase 334 IU/L H IU/L (38-126) Lactate Dehydrogenase Total Protein 5.1 g/dL L g/dL (6.3-8.2) Albumin 2.5 g/dL L g/dL (3.5-5.0) Lipase Fluid Meso/Macro/[place] % 81 % % Fl Pathologist Review Pending Pleural Fluid Source PLEURAL Pleural Color YELLOW (STRAW/YELL) Pleural Appearance SL. HAZY H (CLEAR) Pleural pH 7.5 (6.8-7.6) Pleural WBC 208 /mm3 /mm3 Pleural RBC 89 /MM3 /MM3 Pleural Neutrophils 1 % % Pleural Lymphocytes % 18 % % Pleural LDH 357 IU/L IU/L Pleural Glucose 80 mg/dL mg/dL (55-113) 03/24/18 03/24/18 03/23/18 04:20 00:01 14:30 WBC 3.91 10^3/uL 10^3/uL (3.80-9.50) RBC 2.87 10^6/uL L 10^6/uL (4.18-5.33) Hgb 8.2 g/dL L g/dL (12.6-16.3) Hct 25.3 % L % (38.0-47.0) MCV 88.2 fL fL (81.5-99.8) MCH 28.6 pg pg (27.9-34.1) MCHC 32.4 g/dL g/dL (32.4-36.7) RDW 21.2 % H % (11.5-15.2) Plt Count 219 10^3/uL 10^3/uL (150-400) MPV 10.5 fL fL (8.7-11.7) Neut % (Auto) 81.5 % H % (39.3-74.2) Lymph % (Auto) 8.2 % L % (15.0-45.0) [place] % (Auto) 5.1 % % (4.5-13.0) Eos % (Auto) 4.1 % % (0.6-7.6) Baso % (Auto) 0.8 % % (0.3-1.7) Nucleat RBC Rel Count 0.0 % % (0.0-0.2) Absolute Neuts (auto) 3.19 10^3/uL 10^3/uL (1.70-6.50) Absolute Lymphs (auto) 0.32 10^3/uL L 10^3/uL (1.00-3.00) Absolute Monos (auto) 0.20 10^3/uL L 10^3/uL (0.30-0.80) Absolute Eos (auto) 0.16 10^3/uL 10^3/uL (0.03-0.40) Absolute Basos (auto) 0.03 10^3/uL 10^3/uL (0.02-0.10) Absolute Nucleated RBC 0.00 10^3/uL 10^3/uL (0-0.01) Immature Gran % 0.3 % % (0.0-1.1) Immature Gran # 0.01 10^3/uL 10^3/uL (0.00-0.10) RBC/WBC/PLT Morphology TNP Platelet Estimate ADEQUATE (ADEQ) Polychromasia Hypochromasia Basophilic Stippling 1+ H Microcytic Cells 1+ H Tear Drop Cells 1+ H Oval Macrocytes Echinocytes Acanthocytes (Spur) Keratocytes 1+ H Smear Review By Fuad BETHEA MD PT INR APTT Sodium 140 mEq/L mEq/L (135-145) Potassium 4.0 mEq/L mEq/L (3.3-5.0) Chloride 107 mEq/L mEq/L (97-110) Carbon Dioxide 24 mEq/l mEq/l (22-31) Anion Gap 9 mEq/L mEq/L (8-16) BUN 13 mg/dL mg/dL (7-23) Creatinine 0.5 mg/dL L mg/dL (0.6-1.0) Estimated GFR > 60 Glucose 96 mg/dL mg/dL (70-100) Calcium 9.2 mg/dL mg/dL (8.5-10.4) Total Bilirubin 2.9 mg/dL H mg/dL (0.1-1.4) Conjugated Bilirubin 1.8 mg/dL H mg/dL (0.0-0.5) Unconjugated Bilirubin 1.1 mg/dL mg/dL (0.0-1.1) AST 189 IU/L H IU/L (14-46) ALT 94 IU/L H IU/L (9-52) Alkaline Phosphatase 413 IU/L H IU/L (38-126) Lactate Dehydrogenase 932 IU/L H IU/L (313-618) Total Protein 6.5 g/dL g/dL (6.3-8.2) Albumin 3.3 g/dL L g/dL (3.5-5.0) Lipase 181 IU/L IU/L (23-300) Fluid Meso/Macro/[place] % Fl Pathologist Review Pleural Fluid Source Pleural Color Pleural Appearance Pleural pH Pleural WBC Pleural RBC Pleural Neutrophils Pleural Lymphocytes % Pleural LDH Pleural Glucose 03/23/18 03/23/18 14:30 14:30 WBC 4.43 10^3/uL 10^3/uL (3.80-9.50) RBC 3.27 10^6/uL L 10^6/uL (4.18-5.33) Hgb 9.3 g/dL L g/dL (12.6-16.3) Hct 29.1 % L % (38.0-47.0) MCV 89.0 fL fL (81.5-99.8) MCH 28.4 pg pg (27.9-34.1) MCHC 32.0 g/dL L g/dL (32.4-36.7) RDW 21.2 % H % (11.5-15.2) Plt Count 262 10^3/uL 10^3/uL (150-400) MPV 10.7 fL fL (8.7-11.7) Neut % (Auto) 84.0 % H % (39.3-74.2) Lymph % (Auto) 7.7 % L % (15.0-45.0) [place] % (Auto) 4.7 % % (4.5-13.0) Eos % (Auto) 2.7 % % (0.6-7.6) Baso % (Auto) 0.7 % % (0.3-1.7) Nucleat RBC Rel Count 0.0 % % (0.0-0.2) Absolute Neuts (auto) 3.72 10^3/uL 10^3/uL (1.70-6.50) Absolute Lymphs (auto) 0.34 10^3/uL L 10^3/uL (1.00-3.00) Absolute Monos (auto) 0.21 10^3/uL L 10^3/uL (0.30-0.80) Absolute Eos (auto) 0.12 10^3/uL 10^3/uL (0.03-0.40) Absolute Basos (auto) 0.03 10^3/uL 10^3/uL (0.02-0.10) Absolute Nucleated RBC 0.00 10^3/uL 10^3/uL (0-0.01) Immature Gran % 0.2 % % (0.0-1.1) Immature Gran # 0.01 10^3/uL 10^3/uL (0.00-0.10) RBC/WBC/PLT Morphology TNP Platelet Estimate ADEQUATE (ADEQ) Polychromasia 1+ H Hypochromasia 1+ H Basophilic Stippling Microcytic Cells Tear Drop Cells 1+ H Oval Macrocytes 1+ H Echinocytes 1+ H Acanthocytes (Spur) 1+ H Keratocytes Smear Review By PT INR APTT Sodium REJ Potassium REJ Chloride REJ Carbon Dioxide REJ Anion Gap REJ BUN REJ Creatinine REJ Estimated GFR REJ Glucose REJ Calcium REJ Total Bilirubin Conjugated Bilirubin Unconjugated Bilirubin AST ALT Alkaline Phosphatase Lactate Dehydrogenase Total Protein Albumin Lipase Fluid Meso/Macro/[place] % Fl Pathologist Review Pleural Fluid Source Pleural Color Pleural Appearance Pleural pH Pleural WBC Pleural RBC Pleural Neutrophils Pleural Lymphocytes % Pleural LDH Pleural Glucose Microbiology 03/24/18 09:00 Thoracic Fluid - Aspirate Gram Stain - Final PET/CT dated 03/19/2018 from [place]: Demonstrating progressive disease within the liver. Multiple new hepatic metastasis noted. Multiple new skeletal lesions also noted. In the reviewed states that small lesions within the lungs have slightly improved in size although he does not quantify this. I do not have the previous PET/CT for review Assessment and plan This is a 62-year-old female with history of metastatic breast cancer pain 1. Metastatic breast cancer: In reviewing her most recent PET/CT she clearly has progression of disease. She was told in [place] that she continues to respond. Given the discordance between my interpretation and her physician in [place], they would like to discuss with Dr. Fish regarding this in clinic, which I stated is reasonable. 2. Pleural effusion: This is likely malignant. She underwent a simple thoracentesis. I explained to her that with malignant effusions, they typically reaccumulate. I would just observe to see how long that takes before undergoing any further procedures. 3. Ascites: Again, this is likely malignant and worsening of her disease. She underwent a paracentesis. All questions were answered. She voiced her understanding of the plan.
--- NOTE | 2018-03-24 13:53 | PDDCSUM ---
Discharge Summary Discharge Summary: Dates of service 03/23-03/24/18 Consultations: oncology Procedures performed: US guided thoracentesis 62-year-old female presents with acute shortness of breath most likely secondary to acute malignant pleural effusion with comorbid malignant ascites and stage IV breast cancer Plan: 1. Pleural effusion. most likely malignant, sp diagnostic and therapeutic drainage. Discussed that this could recur, and even recur quickly, that drains are an option etc. She understands the options, will discuss further with her oncologist in the am. 2. Malignant ascites. as above 3. Stage IV breast cancer. Reoccurred in 2011, currently with mets to the liver , lungs, bones -reviewed with oncology, patient currently undergoing an unusual palliative program in [place] that she reports has shrunk the tumors, however some of the data would also suggest progression -she will f/u with oncology tico Diet. Regular Prophylaxis. High risk patient, hold pharmacologic given thoracentesis tomorrow a.m., SCDs Code. Her partner is her MD MCKINNEY, the patient wishes to be do not intubate Disposition. dc home f/u with Dr. Fish as scheduled in am
== END 2018-03-24 15:00 | disposition home or self-care (01) ==
LOC: F1N 17:48
PROVIDERS: ADMIT Internal Medicine; ATTEND Internal Medicine
PROC: 0W993ZZ Drainage of Right Pleural Cavity, Percutaneous Approach (ICD-10-PCS; principal; 2018-03-23)
DX: C50.919 Malignant neoplasm of unspecified site of unspecified female breast (principal); J91.0 Malignant pleural effusion; R18.0 Malignant ascites; C78.7 Secondary malignant neoplasm of liver and intrahepatic bile duct; C78.00 Secondary malignant neoplasm of unspecified lung; C79.51 Secondary malignant neoplasm of bone
CPT/HCPCS: 32555; 71045; 71046; 76705; 96374; 97162; 99285; G0378; J1885

== ENCOUNTER → 2018-03-27 | Outpatient (CLI) | payer OTHER | LOC: FIMAGING 14:55 | PROVIDERS: ATTEND Internal Medicine Hematology & Oncology | DX: J90 Pleural effusion, not elsewhere classified (principal); R18.8 Other ascites; Z95.828 Presence of other vascular implants and grafts ==

== ENCOUNTER → 2018-03-28 | Outpatient (CLI) | payer OTHER ==
[~2018-03-28] MED LIST changes: -IOPAMIDOL (ISOVUE-M 300) 15 ML VIAL ONE; +LIDOCAINE 1% 300 MG/30 ML SDV ONE
== END ==
LOC: FIMAGING 11:54
PROC: 0W993ZX Drainage of Right Pleural Cavity, Percutaneous Approach, Diagnostic (ICD-10-PCS; principal; 2018-03-28)
DX: J90 Pleural effusion, not elsewhere classified (principal); C50.411 Malignant neoplasm of upper-outer quadrant of right female breast

== ENCOUNTER → 2018-04-01 | Outpatient (CLI) | payer OTHER | LOC: FIMAGING 14:38 | PROVIDERS: ATTEND Internal Medicine Hematology & Oncology | PROC: 0W993ZZ Drainage of Right Pleural Cavity, Percutaneous Approach (ICD-10-PCS; principal; 2018-04-01) | DX: J90 Pleural effusion, not elsewhere classified (principal) ==

== ENCOUNTER → 2018-04-03 | Outpatient (CLI) | payer OTHER | LOC: FIMAGING 13:36 | PROVIDERS: ATTEND Internal Medicine Hematology & Oncology | PROC: 0W993ZX Drainage of Right Pleural Cavity, Percutaneous Approach, Diagnostic (ICD-10-PCS; principal; 2018-04-03) | DX: J90 Pleural effusion, not elsewhere classified (principal); C50.411 Malignant neoplasm of upper-outer quadrant of right female breast ==

== ENCOUNTER → 2018-04-07 | Outpatient (CLI) | payer OTHER | LOC: FIMAGING 14:39 | PROVIDERS: ATTEND Internal Medicine Hematology & Oncology | PROC: 0W993ZZ Drainage of Right Pleural Cavity, Percutaneous Approach (ICD-10-PCS; principal; 2018-04-07) | DX: J90 Pleural effusion, not elsewhere classified (principal) ==

== ENCOUNTER → 2018-04-10 | Outpatient (CLI) | payer OTHER | LOC: FIMAGING 14:29 | PROVIDERS: ATTEND Internal Medicine Hematology & Oncology | PROC: 0W993ZZ Drainage of Right Pleural Cavity, Percutaneous Approach (ICD-10-PCS; principal; 2018-04-10) | DX: C50.919 Malignant neoplasm of unspecified site of unspecified female breast (principal); J91.0 Malignant pleural effusion ==